=== PATIENT | female | born 1965 | race Caucasian/White ===

== ENCOUNTER → 2021-04-28 | Outpatient (CLI) | payer OTHER ==
[2021-04-28 16:22] LABS: Basophils # (A) 0.04 X 10*3/uL (0.00-0.10); Basophils % (A) 0.4 %; Eosinophils % (A) 0.9 %; HCT 39.6 % (37.2-46.3); HGB 13.1 g/dL (12.0-15.0); Lymphocytes # (A) 3.17 X 10*3/uL (0.90-5.00); MCH 31.3 pg (27.0-32.0); MCHC 33.1 g/dL (32.0-37.0); MCV 94.7 fL (80.0-97.0); Mean Platelet Volume 11.8 fL (9.5-12.2); Monocytes # (A) 0.54 X 10*3/uL (0.20-1.00); Monocytes % (A) 4.9 %; Neutrophils # (A) 7.05 X 10*3/uL (1.80-7.70); Neutrophils % (A) 64.5 %; Platelet Count 254 X 10*3/uL (140-440); RBC 4.18 X 10*6/uL (4.10-5.20); RDW 12.9 % (11.5-14.5); WBC 10.93 X 10*3/uL (4.50-10.00)
[2021-04-28 19:06] LABS: African American GFR (CKD) 58.9 (60.0-200.0); Albumin 4.3 g/dL (3.80-4.90); Albumin/Globulin Ratio 1.72 (1.60-3.17); Anion Gap 8.2 mmol/L (4.00-12.00); BUN/Creat Ratio 18.33 Ratio (12.00-20.00); Calcium 9.4 mg/dL (8.7-10.3); Carbon Dioxide 29.8 mmol/L (21.6-31.8); Globulin 2.5 g/dL (1.6-3.3); Non-African American GFR(CKD) 50.8 (60.0-200.0); Potassium 4.5 mmol/L (3.5-5.5); Total Bilirubin 0.4 mg/dL (0.2-1.2); Total Protein 6.8 g/dL (6.2-8.2)
[2021-04-28 19:14] LABS: T4, Free (Free Thyroxine) 1.2 ng/dL (0.80-1.80)
== END | disposition home or self-care (01) ==
LOC: LABWHC1 10:43
PROVIDERS: ATTEND Physician Assistant
DX: R41.3 Other amnesia (principal)
CPT/HCPCS: 36415; 80053; 82306; 82607; 84439; 84443; 84481; 85025

== ENCOUNTER → 2021-08-07 | Outpatient (CLI) | payer OTHER ==
[2021-08-07 14:36] LABS: HCT 39.1 % (37.2-46.3); HGB 12.5 g/dL (12.0-15.0); MCH 31.3 pg (27.0-32.0); Mean Platelet Volume 11.3 fL (9.5-12.2); Platelet Count 274 X 10*3/uL (140-440); RBC 3.99 X 10*6/uL (4.10-5.20); RDW 13.4 % (11.5-14.5); WBC 7.48 X 10*3/uL (4.50-10.00)
[2021-08-07 15:55] LABS: Basophils # (A) 0.05 X 10*3/uL (0.00-0.10); Basophils % (A) 0.7 %; Eosinophils # (A) 0.23 X 10*3/uL (0.04-0.35); Eosinophils % (A) 3.1 %; Lymphocytes # (A) 2.84 X 10*3/uL (0.90-5.00); Monocytes # (A) 0.63 X 10*3/uL (0.20-1.00); Monocytes % (A) 8.4 %; Neutrophils # (A) 3.71 X 10*3/uL (1.80-7.70); Neutrophils % (A) 49.5 %
[2021-08-07 17:25] LABS: Erythrocyte Sedimentation Rate 24 mm/Hr (0-30)
[2021-08-07 17:26] LABS: LDL Cholesterol,Calculated 179.6 mg/dL (0.0-131.0)
[2021-08-07 17:31] LABS: ALT 22 U/L (8-44); AST 27 U/L (13-35); African American GFR (CKD) 73.5 (60.0-200.0); Albumin 4.1 g/dL (3.8-4.9); Albumin/Globulin Ratio 1.77 (1.60-3.17); Alkaline Phosphatase 71 U/L (41-126); Calcium 9.2 mg/dL (8.7-10.3); Carbon Dioxide 22.3 mmol/L (20.0-27.5); Chloride 106 mmol/L (96-109); Globulin 2.3 g/dL (1.6-3.3); Glucose 96 mg/dL (70-110); Non-African American GFR(CKD) 63.4 (60.0-200.0); Potassium 4.9 mmol/L (3.5-5.5); Sodium 142 mmol/L (135-145); Total Protein 6.4 g/dL (6.2-8.2)
[2021-08-07 18:42] LABS: Gliadin AB IgA, Deaminated NEGATIVE (NEGATIVE); Gliadin AB IgA, Unit 2.4 U/mL; Gliadin AB IgG, Deaminated NEGATIVE (NEGATIVE)
== END | disposition home or self-care (01) ==
LOC: LABWHC1 09:22
PROVIDERS: ATTEND Family Medicine
DX: K63.5 Polyp of colon (principal); K57.32 Diverticulitis of large intestine without perforation or abscess without bleeding; K59.4 Anal spasm; R41.3 Other amnesia
CPT/HCPCS: 36415; 80053; 80061; 82306; 82607; 83516; 84443; 85025; 85652; 86140

== ENCOUNTER → 2021-08-18 | Outpatient (CLI) | payer OTHER ==
--- NOTE | 2021-08-18 15:29 | CT ---
EXAMINATION TYPE: CT abdomen pelvis w con DATE OF EXAM: 08/18/2021 HISTORY: left sided abdominal pain and constipation CT DLP: 1271.1mGycm Automated Exposure Control for Dose Reduction was Utilized. CONTRAST: CT scan of the abdomen and pelvis is performed without oral but with IV Contrast, patient injected wi th 100 mL of Isovue 300. COMPARISON: None. FINDINGS: LUNG BASES: Dependent atelectasis bilateral lower lungs. There is 8 x 5 mm subpleural left basilar no dule axial image 15 LIVER/GB: Contracted gallbladder. PANCREAS: No significant abnormality is seen. SPLEEN: No significant abnormality is seen. ADRENALS: No significant abnormality is seen. KIDNEYS: Symmetric cortical medullary uptake and excretion with tortuous course to the proximal right ureter. Mild right-sided pyelocaliectasis. No obstructing calculus bilaterally BOWEL: Slightly suboptimal evaluation of bowel without enteric contrast. No suspicious small or large bowel dilatation is seen. Normal-appearing appendix from cecum identified. Few scattered colonic div erticula. No CT evidence for acute diverticulitis.. UTERUS/ADNEXA: Uterus surgically absent or markedly atrophic. Single right-sided pelvic phlebolith on axial image 75. LYMPH NODES: No greater than 1cm abdominal or pelvic lymph nodes are appreciated. OSSEOUS STRUCTURES: No significant abnormality is seen. OTHER: Moderate peripheral plaque in the aorta extends into branch vessels. Somewhat small caliber ao rta and iliac branch vessels noted. Some narrowing at celiac artery origin sagittal image 65. Cannot exclude celiac artery compression syndrome in the appropriate setting, correlate clinically. IMPRESSION: Some scattered colonic diverticula, no CT evidence for acute diverticulitis. No bowel obs truction. No acute findings are clearly evident.
== END | disposition home or self-care (01) ==
LOC: RADCTMAIN 12:57
PROVIDERS: ATTEND Family Medicine
DX: K57.30 Diverticulosis of large intestine without perforation or abscess without bleeding (principal)
CPT/HCPCS: 74177; Q9967

== ENCOUNTER → 2022-07-06 | Outpatient (CLI) | payer OTHER ==
[2022-07-06 13:56] VITALS: BP 134/93; PULSE 91; RESP 16; TEMP 98.1
--- NOTE | 2022-07-06 15:38 | P.PAINPG ---
PQRS Measure Charge Sheet Comment: HISTORY OF PRESENT ILLNESS: 57 yr old female as a referral from Dr Jackson presents today w severe and chronic LBP x 2 yrs secondary to DDD, spondylosis and facet arthropathy without myelopathy for evaluation. Pt states pain level is at 4/10 in intensity, constant, localized in the lower lumbar spine, dull in character w shooting pain towards the groin and back of legs. Pain is provoked by walking/ standing/ bending for periods of 45 min or more. Pain is alleviated by medications (Tramadol, Neurontin, Buspar), injections in the past, ice, heat, PT x 4 wks in May 2022, reclining and rest. PMH: OA, HTN, Anxiety PSH: Denies SH: 42 pack/ yr current tobacco user, Rare ETOH use, No illicit drug use FH: Non contributory All: See list Meds: See list REVIEW OF ORGAN SYSTEMS: CONSTITUTIONAL: No fevers or chills. No recent weight loss. NEUROLOGICAL: + numbness and tingling along the distal extremities. No seizure disorders or headaches. MUSCULOSKELETAL: + pain PSYCHIATRIC: Denies current depression or suicidal th oughts. Physical Examinations : Constitutional : Cooperative , not in acute distress . Neurologic : Cranial nerve II to XII intact. No focal neurological deficits. Psychiatric : alert & oriented x 3. Matching mood & appropriate affect. Judgment & insight intact. Musculoskeletal : Cervical Spine Motor strength in the deltoid and biceps: Normal right side. Normal Left side Motor strength biceps and the wrist extensors: Normal right side . Normal left side Motor strength in the triceps muscle: Normal right side. Normal left side Deep tendon reflexes: Normal at the biceps. Normal at Brachioradialis. Normal at triceps Vertebral body tenderness to deep palpation over Cervical facet loading test: positive bilaterally Spurling test: positive bilaterally Neck distraction test: positive bilaterally Darren sign: positive bilaterally Lumbar spine Motor strength lower extremities ,thigh and legs 5/5 Right side , 5/5 Left side Deep tendon reflexes : Normal Knee Jerk. Normal Ankle Jerk Vertebral body tenderness over L4 Lumbar facet Loading Test: positive Right / positive Left Range of motion of the lumbar spine Flexion 30 degrees, extension 10 degrees Straight Leg Raise test: Left/ Right positive at degree Isabelle test: positive right / positive left. Severe tenderness over the Sacroiliac joint on the Right / Left sides Gaenslen test: positive bilaterally Seated flexion test: positive bilaterally. Sacral spine : Severe tenderness over the Sacroiliac joint: right side / left side Range of motion: Flexion of the lumbar spine <60 degrees Range of motion: Extension of the lumbar spine <20 degrees Gaenslen's Test positive Des's Test positive Isabelle test: positive right side / left side Thigh Thrust Test Sacral Thrust Test Imaging: X-ray of the lumbar spine from 05/12/22 reviewed Assessment/ Plan : Lumbar radiculopathy, lumbar DDD Will obtain MRI reports from [facility] as patient states she completed recently. Recommendation of MARNIE L4-L5. May need a series of injections, up to 3 within a 6 mo period, for optimal pain relief. Risks, benefits of procedure discussed and patient verbalized understanding. Admits to aspirin or anti- coagulant use or medical history of diabetes. Protocol for discontinuation/ continuation of medications castillo procedure discussed. All questions answered. I have spent greater than 30 minutes on patient care today. Dr Corrales was available by phone for the evaluation of this patient. The time was used to review the medical records including relevant urine studies and Prescription history (MAPs), review of the available imaging, evaluation and examination of the patient, coordination of care with the medical staff and if applicable r eferring physicians, as well as creation of the medical record Controlled Substance Measures - Controlled Substance Measures Is patient prescribed a controlled substance at discharge?: No
== END ==
LOC: PNWHC3 12:32
PROVIDERS: ATTEND Specialist
DX: M51.36 Other intervertebral disc degeneration, lumbar region (principal); M54.16 Radiculopathy, lumbar region
CPT/HCPCS: 99211

== ENCOUNTER 2022-08-06 11:48 | Day surgery (SDC) | payer OTHER ==
[2022-08-04 09:55] VITALS: BMI 30.5
[~2022-08-06 11:48] MED LIST: LACTATED RINGERS 1,000 ML IV SCH
[2022-08-06 12:14] VITALS: TEMP 98.1
[2022-08-06] MEDS ORDERED: LACTATED RINGERS 1,000 ML IV ONE ×2 (12:15→13:05)
[2022-08-06] MEDS ORDERED: fentaNYL (PF) 50 MCG/ML 2 ML AMP ONE (12:49)
[2022-08-06] MEDS ORDERED: MIDAZOLAM 2 MG/2 ML VIAL ONE (12:49)
[2022-08-06] MEDS ORDERED: methylPREDNISolone ACETATE 80 MG/ML 1 ML VIAL ONE (12:49)
[2022-08-06] MEDS ORDERED: IOPAMIDOL M200 10 ML VIAL ONE (12:49)
--- NOTE | 2022-08-06 13:02 | P.PCN ---
Date of Procedure: 08/06/22 Description of Procedure: Procedure: 1. L4-L5 Epidural steroid injection under fluoroscopic guidance # 1/ , 2. Lumbar epidurogram PREOPERATIVE DIAGNOSIS: Lumbar degenerative disc disease, and Lumbar radiculopathy. POSTOPERATIVE DIAGNOSIS: Lumbar degenerative disc disease, and Lumbar radiculopathy. SURGEON: Humberto Leyva ANESTHESIA: Local with 1% lidocaine, and IV sedation: Versed 2 mg, and fentanyl 50 g Sedation supervision start time: 1253 Sedation supervision ended time 1300 EBL: None. Specimen removed: None Fluoroscopic image: saved to electronic medical records PROCEDURE INDICATION: The patient had history of Lumbar degenerative disc disease and Lumbar radiculopathy. Failed to conservative therapy. Presented for epidural steroid injection. PROCEDURE DESCRIPTION: The patient was seen and identified in the preoperative area. Risks, benefits, complications, and alternatives were discussed with the patient. The patient agreed to proceed with the procedure and signed the consent. IV was started, and vital signs were stable. Patient was taken to the procedure area, and time out was completed. The patient was placed in the prone position on procedure table and a pillow was placed under the abdomen to reduce lumbar lordosis. The lumbosacral area was prepped and draped in the usual sterile fashion. Critical pause was taken. Vital signs were closely monitored during the procedure. Using anterior-posterior fluoroscopy, the L4-L5 interlaminar space was identified, and skin and deeper tissues were localized with 3 ml of 1% lidocaine. Using anterior-posterior fluoroscopy, lateral fluoroscopy, and hexm-wd-aozddhhuli technique, a 20 gauge 3.5 Tuohy epidural needle entered the epidural space. After negative aspiration of CSF and blood with no paresthesias, 2 ml of [id number] contrast dye was injected and an excellent epidurogram was seen. Again after negative aspiration of CSF and blood with no paresthesias, 7 mL of block solution was injected into the epidural space. Block solution contained 80 mg of Depo-Medrol, and 6 mL of preservative-free normal saline. Needle was withdrawn intact, skin was cleansed, and bandages were applied. COMPLICATIONS: None. DISPOSITION / PLANS: The patient was placed in a supine position and transferred to the recovery area in a stable condition for observation. Patient was discharged from the recovery room after meeting discharge criteria. Home discharge instructions given to the patient by the staff. The patient was reexamined prior to discharge. The patient will schedule a follow up in the clinic in 4 weeks.
[2022-08-06 13:06] VITALS: PULSE 77
--- NOTE | 2022-08-06 13:30 | FL ---
EXAMINATION TYPE: FL guided pain mgmt statistic DATE OF EXAM: 08/06/2022 HISTORY: Fluoroscopy time 3 seconds of fluoroscopy provided. IMPRESSION: 1. Fluoroscopy time.
[2022-08-06 13:45] VITALS: BP 121/77; RESP 20
== END 2022-08-06 13:35 | disposition home or self-care (01) ==
LOC: ORPAIN 11:48
DX: M51.16 Intervertebral disc disorders with radiculopathy, lumbar region (principal); I10 Essential (primary) hypertension; F17.210 Nicotine dependence, cigarettes, uncomplicated; F41.8 Other specified anxiety disorders; F43.10 Post-traumatic stress disorder, unspecified; K57.90 Diverticulosis of intestine, part unspecified, without perforation or abscess without bleeding; F12.90 Cannabis use, unspecified, uncomplicated; Z98.890 Other specified postprocedural states; Z90.710 Acquired absence of both cervix and uterus; Z88.0 Allergy status to penicillin; Z88.5 Allergy status to narcotic agent; Z88.8 Allergy status to other drugs, medicaments and biological substances
CPT/HCPCS: 62323; J2250; J1040; J3010; Q9966

== ENCOUNTER 2022-08-12 16:18 | Emergency (ER) | payer OTHER ==
[2022-08-12 16:37] VITALS: TEMP 98.2
--- NOTE | 2022-08-12 16:50 | XR ---
EXAMINATION TYPE: XR KUB DATE OF EXAM: 08/12/2022 4:46 PM INDICATION: Patient age:Female; 57 years old; Reason for study: abdominal pain; COMPARISON: None TECHNIQUE: One radiographic view of the abdomen was obtained. FINDINGS: The bowel gas pattern is nonspecific without dilated loops of small or large bowel. There i s no evidence for organomegaly or pneumoperitoneum. The osseous structures are intact. No abnormal calcifications are present. Fecal material and gas are demonstrated throughout the colon and rectum. IMPRESSION: Nonspecific bowel gas pattern without radiographic evidence for acute process.
[2022-08-12] MEDS ORDERED: SODIUM CHLORIDE 0.9% 1,000 ML IV STA (19:09)
[2022-08-12] MEDS ORDERED: ONDANSETRON 4 MG/2 ML VIAL IVP STA (19:09)
[2022-08-12] MEDS ORDERED: KETOROLAC 15 MG/ML 1 ML VIAL IVP STA (19:10)
[2022-08-12 20:29] LABS: Basophils # (A) 0.1 k/uL (0-0.2); Basophils % (A) 0 %; Eosinophils # (A) 0.2 k/uL (0-0.7); Eosinophils % (A) 2 %; HGB 13.8 gm/dL (11.4-16.0); Lymphocytes # (A) 4.1 k/uL (1.0-4.8); Lymphocytes % (A) 32 %; MCH 30.7 pg (25.0-35.0); MCHC 32.9 g/dL (31.0-37.0); MCV 93.2 fL (80.0-100.0); Mean Platelet Volume 9.6; Monocytes # (A) 0.7 k/uL (0-1.0); Monocytes % (A) 6 %; Neutrophils # (A) 7.4 k/uL (1.3-7.7); Neutrophils % (A) 58 %; Platelet Count 262 k/uL (150-450); RBC 4.51 m/uL (3.80-5.40); RDW 13.2 % (11.5-15.5); WBC 12.7 k/uL (3.8-10.6)
[2022-08-12 20:30] LABS: Appearance,Urine Clear (Clear); Bilirubin,Urine Negative (Negative); Blood,Urine Negative (Negative); Color,Urine Yellow; Glucose,Urine (UA) Negative (Negative); Ketones,Urine Negative (Negative); Leukocyte Esterase,Urine Negative (Negative); Nitrite,Urine Negative (Negative); Protein,Urine Negative (Negative); Specific Gravity,Urine 1.015 (1.001-1.035); Urobilinogen,Urine <2.0 mg/dL (<2.0)
--- NOTE | 2022-08-12 20:41 | CT ---
EXAMINATION TYPE: CT abdomen pelvis w con CT DLP: 1279.8 mGycm, Automated exposure control for dose reduction was used. DATE OF EXAM: 08/12/2022 8:14 PM COMPARISON: 08/18/2021. CLINICAL INDICATION:Female, 57 years old with history of abdominal pain; LOW ABD PAIN TECHNIQUE: Axial CT of the abdomen and pelvis. Sagittal and coronal reformats were created on a [employer] workstation. Contrast used:100ML mL of Isovue 300 with IV Contrast, Oral contrast used: without Oral Contrast FINDINGS: LOWER CHEST: Unremarkable ABDOMEN LIVER: Unremarkable GALLBLADDER AND BILE DUCTS: Phrygian cap of the gallbladder. PANCREAS: Unremarkable. SPLEEN: Unremarkable. ADRENAL GLANDS: Unremarkable. KIDNEYS AND URETERS: No evidence of hydronephrosis or renal calculus. The ureters are unremarkable. PELVIS BLADDER: Unremarkable REPRODUCTIVE: The uterus is surgically absent. ABDOMEN & PELVIS STOMACH AND BOWEL: No evidence of bowel obstruction. Appendix is normal. There is moderate stool seen within the right colon predominantly. PERITONEUM/RETROPERITONEUM: No evidence of pneumoperitoneum or free fluid. . VASCULATURE: No evidence of aortic aneurysm. Atherosclerosis of the arterial vasculature. MUSCULOSKELETAL: No acute osseous abnormalities. Mild disc degeneration changes are present throughou t the thoracolumbar spine. LYMPH NODES: No gross evidence for lymphadenopathy. SOFT TISSUE/ABDOMINAL WALL: Unremarkable IMPRESSION: No evidence for acute abdominal process. Appendix is normal. No obstructive uropathy.
[2022-08-12 20:43] VITALS: RESP 18
[2022-08-12 20:43] LABS: ALT 20 U/L (4-34); AST 29 U/L (14-36); African American GFR (CKD) >90 (>60 ml/min/1.73 sqM); Albumin 4.7 g/dL (3.5-5.0); Alkaline Phosphatase 68 U/L (38-126); Anion Gap 7 mmol/L; Blood Urea Nitrogen 17 mg/dL (7-17); Calcium 9.4 mg/dL (8.4-10.2); Carbon Dioxide 28 mmol/L (22-30); Chloride 104 mmol/L (98-107); Glucose 103 mg/dL (74-99); Non-African American GFR(CKD) 87 (>60 ml/min/1.73 sqM); Sodium 139 mmol/L (137-145); Total Bilirubin 0.8 mg/dL (0.2-1.3); Total Protein 7.9 g/dL (6.3-8.2)
[2022-08-12 20:58] LABS: Potassium 5.3 mmol/L (3.5-5.1)
[2022-08-12 21:11] LABS: Amylase 71 U/L (30-110); Lipase 87 U/L (23-300)
--- NOTE | 2022-08-12 21:31 | ED ---
Abdominal Pain HPI - General Chief Complaint: Abdominal Pain Stated Complaint: Abd pain Time Seen by Provider: 08/12/22 19:01 Source: patient Mode of arrival: ambulatory - History of Present Illness Initial Comments: Patient is a 57-year-old female presenting with chief complaint of abdominal pain. Pain started last night it is sharp in nature. It is located in the bilateral lower quadrants. Patient states she had one episode of seeing a small amount of bright red blood on the toilet tissue, patient has known hemorrhoids and believes this to be the cause. She admits to small amount of nausea, no vomiting. No chest pain or difficulty breathing. No palpitations, weakness, numbness, tingling, headache, fever, chills. - Related Data Home Medications Medication Instructions Recorded Confirmed Cholecalciferol [Vitamin D3 (25 25 mcg PO DAILY 08/04/22 08/06/22 Mcg = 1000 Iu)] DULoxetine HCL [Cymbalta] 120 mg PO DAILY 08/04/22 08/06/22 Gabapentin 300 mg PO TID 08/04/22 08/06/22 Magnesium Oxide [Magnesium] 700 mg PO DAILY 08/04/22 08/06/22 Mirtazapine [Remeron] 1.5 tab PO HS PRN 08/04/22 08/06/22 Omeprazole 40 mg PO DAILY 08/04/22 08/06/22 busPIRone HCL 15 mg PO TID 08/04/22 08/06/22 lisinopriL [Zestril] 20 mg PO DAILY 08/04/22 08/06/22 traMADol HCL 50 mg PO BID 08/06/22 08/06/22 Allergies Allergy/AdvReac Type Severity Reaction Status Date / Time acetaminophen [From [place]] Allergy Severe HIVES, Verified 08/12/22 16:37 COULDNOT BREATH hydrocodone [From [place]] Allergy Severe HIVES, Verified 08/12/22 16:37 COULD'NT BREATHE Penicillins Allergy Unknown Anaphylaxis, Verified 08/12/22 16:37 THROAT CLOSING, RASH, DYSPNEA Review of Systems ROS Statement: Those systems with pertinent positive or pertinent negative responses have been documented in the HPI. ROS Other: All systems not noted in ROS Statement are negative. Past Medical History Past Medical History: Chest Pain / Angina, GERD/Reflux, Hypertension, Memory Impairment History of Any Multi-Drug Resistant Organisms: None Reported Past Surgical History: Hysterectomy, Orthopedic Surgery, Tubal Ligation Additional Past Surgical History / Comment(s): left shoulder surg. x2. benign tumor removed during hysterectomy Past Anesthesia/Blood Transfusion Reactions: No Reported Reaction Past Psychological History: Anxiety, Depression, PTSD Smoking Status: Current every day smoker Past Alcohol Use History: None Reported Past Drug Use History: Marijuana - Past Family History Mother Family Medical History: Deep Vein Thrombosis (DVT) General Exam Limitations: no limitations General appearance: alert, in no apparent distress Head exam: Present: atraumatic, normocephalic, normal inspection Eye exam: Present: normal appearance Neck exam: Present: normal inspection Respiratory exam: Present: normal lung sounds bilaterally. Absent: respiratory distress, wheezes, rales, rhonchi, stridor Cardiovascular Exam: Present: regular rate, normal rhythm, normal heart sounds. Absent: systolic murmur, diastolic murmur, rubs, gallop, clicks GI/Abdominal exam: Present: soft, tenderness (Diffuse). Absent: distended, guarding, rebound, rigid Neurological exam: Present: alert, oriented X3, CN II-XII intact Psychiatric exam: Present: normal affect, normal mood Skin exam: Present: warm, dry, intact, normal color. Absent: rash Course Vital Signs 08/12/22 08/12/22 08/12/22 16:32 20:42 22:05 Temperature 98.2 F Pulse Rate 78 65 68 Respiratory 16 18 18 Rate Blood Pressure 138/85 139/81 145/84 O2 Sat by Pulse 98 95 96 Oximetry Medical Decision Making - Medical Decision Making Was pt. sent in by a medical professional or institution (, PA, TRACE EVIDENCE TECHNICIAN, urgent care, hospital, or group home...) When possible be specific @ -[No] Did you speak to anyone other than the patient for history (EMS, parent, family, police, friend...)? What history was obtained from this source @ -Sister at bedside Did you review nursing and triage notes (agree or disagree)? Why? @ -[I reviewed and agree with nursing and triage notes] Were old charts reviewed (outside hosp., previous admission, EMS record, old EKG, old radiological studies, urgent care reports/EKG's, group home records)? Report findings @ -[No old charts were reviewed] Differential Diagnosis (chest pain, altered mental status, abdominal pain women, abdominal pain men, vaginal bleeding, weakness, fever, dyspnea, syncope, headache, dizziness, GI bleed, back pain, seizure, CVA, palpatations, mental health)? @ -[facility] Differential Abdominal Pain Women: Appendicitis, Cholecystitis, diverticulosis, ischemic bowel, pancreatitis, hepatitis, UTI, gastroenteritis, AAA, incarcerated hernia, bowel obstruction, constipation, inflammatory bowel, hepatitis, peptic ulcer disease, splenic infarction, perforated viscus, vulvitis, ovarian torsion, PID, kidney stone, silvia centa abruption... This is not meant to be an all-inclusive list EKG interpreted by me (3pts min.). @ -[As above] X-rays interpreted by me (1pt min.). @ -Nonacute abdomen CT interpreted by me (1pt min.). @ - No acute intra-abdominal process. There appears to be a large amount of stool buildup correlating constipation U/S interpreted by me (1pt. min.). @ -[None done] What testing was considered but not performed or refused? (CT, X-rays, U/S, labs)? Why? @ -[None] What meds were considered but not given or refused? Why? @ -[None] Did you discuss the management of the patient with other professionals (professionals i.e. , PA, TRACE EVIDENCE TECHNICIAN, lab, RT, psych nurse, social science instructor, press catcher, teacher, corporate officer, skilled nursing case manager)? Give summary @ -[No] Was smoking cessation discussed for >3mins.? @ -[No] Was critical care preformed (if so, how long)? @ -[No] Were there social determinants of health that impacted care today? How? (Homelessness, low income, unemployed, alcoholism, drug addiction, transportation, low edu. Level, literacy, decrease access to med. care, snf, rehab)? @ -[No] Was there de-escalation of care discussed even if they declined (Discuss DNR or withdrawal of care, Hospice)? DNR status @ -[No] What co-morbidities impacted this encounter? (DM, HTN, Smoking, COPD, CAD, Cancer, CVA, ARF, Chemo, Hep., AIDS, mental health diagnosis, sleep apnea, morbid obesity)? @ -[None] Was patient admitted / discharged? Hospital course, mention meds given and route, prescriptions, significant lab abnormalities, going to OR and other pertinent info. @ -Patient is a 57-year-old female presenting with chief complaint of abdominal pain that started yesterday. She admits to nausea with no vomiting. On physical examination there is diffuse tenderness. WBC 12.7. Potassium 5.3, sample was hemolyzed. Urine shows no evidence of infection or bleeding. KUB x- ray shows no acute process. CT of abdomen and pelvis shows constipation. Patient is educated on these findings. Encouraged to use gysm-dsw-aonvlty magnesium citrate to help with constipation. Stable hydrated and be active whenever possible. Discharged home. Follow-up with PCP. Report back to ER with any new or worsening symptoms. Discussed return parameters and answered all questions. Patient conveyed verbal understanding and agreed to the plan. I discussed this case in detail with my attending Dr. Glover Undiagnosed new problem with uncertain prognosis? @ -[No] Drug Therapy requiring intensive monitoring for toxicity (Heparin, Nitro, Insulin, Cardizem)? @ -[No] Were any procedures done? @ -[No] Diagnosis/symptom? @ -Constipation Acute, or Chronic, or Acute on Chronic? @ -Acute Uncomplicated (without systemic symptoms) or Complicated (systemic symptoms)? @ -Uncomplicated Side effects of treatment? @ -[No] Exacerbation, Progression, or Severe Exacerbation? @ -[No] Poses a threat to life or bodily function? How? (Chest pain, USA, NM, pneumonia, PE, COPD, DKA, ARF, appy, cholecystitis, CVA, Diverticulitis, Homicidal, Suicidal, threat to staff... and all critical care pts) @ -[No] - Lab Data Result diagrams: 08/12/22 19:26 08/12/22 19:26 Lab Results 08/12/22 08/12/22 08/12/22 Range/Units 19:26 19:26 19:26 WBC 12.7 H (3.8-10.6) k/uL RBC 4.51 (3.80-5.40) m/uL Hgb 13.8 (11.4-16.0) gm/dL Hct 42.0 (34.0-46.0) % MCV 93.2 (80.0-100.0) fL MCH 30.7 (25.0-35.0) pg MCHC 32.9 (31.0-37.0) g/dL RDW 13.2 (11.5-15.5) % Plt Count 262 (150-450) k/uL MPV 9.6 Neutrophils % 58 % Lymphocytes % 32 % Monocytes % 6 % Eosinophils % 2 % Basophils % 0 % Neutrophils # 7.4 (1.3-7.7) k/uL Lymphocytes # 4.1 (1.0-4.8) k/uL Monocytes # 0.7 (0-1.0) k/uL Eosinophils # 0.2 (0-0.7) k/uL Basophils # 0.1 (0-0.2) k/uL Sodium 139 (137-145) mmol/L Potassium 5.3 H (3.5-5.1) mmol/L Chloride 104 (98-107) mmol/L Carbon Dioxide 28 (22-30) mmol/L Anion Gap 7 mmol/L BUN 17 (7-17) mg/dL Creatinine 0.77 (0.52-1.04) mg/dL Est GFR (CKD-EPI)AfAm >90 (>60 ml/min/1.73 sqM) Est GFR (CKD-EPI)NonAf 87 (>60 ml/min/1.73 sqM) Glucose 103 H (74-99) mg/dL Plasma Lactic Acid [place] (0.7-2.0) mmol/L Calcium 9.4 (8.4-10.2) mg/dL Total Bilirubin 0.8 (0.2-1.3) mg/dL AST 29 (14-36) U/L ALT 20 (4-34) U/L Alkaline Phosphatase 68 (38-126) U/L Total Protein 7.9 (6.3-8.2) g/dL Albumin 4.7 (3.5-5.0) g/dL Amylase (30-110) U/L Lipase (23-300) U/L Urine Color Yellow Urine Appearance Clear (Clear) Urine pH 5.0 (5.0-8.0) Ur Specific [place] 1.015 (1.001-1.035) Urine Protein Negative (Negative) Urine Glucose (UA) Negative (Negative) Urine Ketones Negative (Negative) Urine Blood Negative (Negative) Urine Nitrite Negative (Negative) Urine Bilirubin Negative (Negative) Urine Urobilinogen <2.0 (<2.0) mg/dL Ur Leukocyte Esterase Negative (Negative) 08/12/22 08/12/22 Range/Units 19:26 19:26 WBC (3.8-10.6) k/uL RBC (3.80-5.40) m/uL Hgb (11.4-16.0) gm/dL Hct (34.0-46.0) % MCV (80.0-100.0) fL MCH (25.0-35.0) pg MCHC (31.0-37.0) g/dL RDW (11.5-15.5) % Plt Count (150-450) k/uL MPV Neutrophils % % Lymphocytes % % Monocytes % % Eosinophils % % Basophils % % Neutrophils # (1.3-7.7) k/uL Lymphocytes # (1.0-4.8) k/uL Monocytes # (0-1.0) k/uL Eosinophils # (0-0.7) k/uL Basophils # (0-0.2) k/uL Sodium (137-145) mmol/L Potassium (3.5-5.1) mmol/L Chloride (98-107) mmol/L Carbon Dioxide (22-30) mmol/L Anion Gap mmol/L BUN (7-17) mg/dL Creatinine (0.52-1.04) mg/dL Est GFR (CKD-EPI)AfAm (>60 ml/min/1.73 sqM) Est GFR (CKD-EPI)NonAf (>60 ml/min/1.73 sqM) Glucose (74-99) mg/dL Plasma Lactic Acid [place] 1.5 (0.7-2.0) mmol/L Calcium (8.4-10.2) mg/dL Total Bilirubin (0.2-1.3) mg/dL AST (14-36) U/L ALT (4-34) U/L Alkaline Phosphatase (38-126) U/L Total Protein (6.3-8.2) g/dL Albumin (3.5-5.0) g/dL Amylase 71 (30-110) U/L Lipase 87 (23-300) U/L Urine Color Urine Appearance (Clear) Urine pH (5.0-8.0) Ur Specific [place] (1.001-1.035) Urine Protein (Negative) Urine Glucose (UA) (Negative) Urine Ketones (Negative) Urine Blood (Negative) Urine Nitrite (Negative) Urine Bilirubin (Negative) Urine Urobilinogen (<2.0) mg/dL Ur Leukocyte Esterase (Negative) Disposition Clinical Impression: Constipation Disposition: HOME SELF-CARE Condition: Good Instructions (If sedation given, give patient instructions): Constipation (ED), High Fiber Diet (ED) Additional Instructions: Follow-up with PCP. Report back to ER with any new or worsening symptoms. Take decm-owl-fqsfmee magnesium citrate as needed for constipation. Stay well hydrated. Is patient prescribed a controlled substance at d/c from ED?: No Referrals: None,Stated [Primary Care Provider] - 1-2 days Time of Disposition: 21:31
[2022-08-12 22:07] VITALS: BP 145/84; PULSE 68
== END 2022-08-12 22:08 | disposition home or self-care (01) ==
LOC: EC 16:18
DX: K59.00 Constipation, unspecified (principal); I10 Essential (primary) hypertension; F17.200 Nicotine dependence, unspecified, uncomplicated; F32.A Depression, unspecified; F41.9 Anxiety disorder, unspecified; K21.9 Gastro-esophageal reflux disease without esophagitis; Z88.0 Allergy status to penicillin; Z88.5 Allergy status to narcotic agent; Z88.6 Allergy status to analgesic agent; Z79.899 Other long term (current) drug therapy; Z90.710 Acquired absence of both cervix and uterus; Z98.51 Tubal ligation status
CPT/HCPCS: 36415; 80053; 82150; 83605; 83690; 85025; 81003; 74018; 74177; 99284; 96374; 96375; 96361; J2405; J1885; Q9967

== ENCOUNTER → 2022-10-14 | Outpatient (CLI) | payer OTHER ==
[2022-10-14 14:46] VITALS: BP 111/80; PULSE 101; RESP 18; TEMP 97.6
--- NOTE | 2022-10-14 15:15 | P.PAINPG ---
PQRS Measure Charge Sheet Comment: A 57 yr old female with a history of severe and chronic LBP x 2 yrs secondary to lumbar DDD and spondylosis with facet arthropathy without myelopathy presents today for evaluation s/p BL facet block of the medial branches L4-L5, L5-S1 #1. Pt states she experienced 0 % pain relief s/p procedure. Pain level is provoked at 9/10 in intensity, constant, localized in the lumbar spine, dull/ achy character w shooting towards the L hip and L glutes. Pain is provoked by . Pain is alleviated with use of a lumbar support brace, heat, ice, THC products, repositioning and rest. Interventional pain procedures completed include BL MBB L3-L5 x1, LESI L4-L5 x1 Patient is currently on Tramadol, Flexeril Patient denies any side effects of the medication(s), denies excessive drowsiness or sleepiness, denies suicidal ideation and reports that the current pain medication is helping to control the pain and improve activities of daily living. Patient denies any motor or sensory deficits. Patient denies any fever or night sweats, denies any change in the bowel movements or urination. Physical Examination: -Constitutional: Cooperative. Not in acute distress . - Neurologic: Cranial nerve II to XII intact. No focal neurological deficits. - Psychatric: Alert & oriented x 3. Matching mood & appropriate affect. Ju dgment and insight intact. - Musculoskeletal: Cervical spine: Muscle bulk/ tone/ strength in the bilateral upper extremities normal Vertebral body tenderness to palpation over Spurling test positive Distraction test positive Facet loading test positive TTP Thoracic spine Muscle bulk / tone/ strength in the bilateral paraspinal muscles normal Vertebral body tender to palpation over Facet loading test positive TTP Lumbar spine: Motor bulk/ tone/ strength lower extremities , thigh and legs : 5/5 Deep tendon reflexes : Normal Knee Jerk. Normal Ankle Jerk . Vertebral body tenderness to palpation over Lumbar Facet Loading Test positive TTP over BL L4-L5 L5-S1 facets Straight Leg Raise: positive at 30 degrees right side/ left side Gaenslen's Test positive Sacral spine : Severe tenderness over the Sacroiliac joint: right side / left side Range of motion: Flexion of the lumbar spine <60 degrees Range of motion: Extension of the lumbar spine <20 degrees Gaenslen's Test positive right side / left side Isabelle test: positive right side / left side Thigh Thrust Test positive right side / left side Sacral Thrust Test positive right side / left side Assessment and plan: Chronic LBP secondary to lumbar DDD, spondylosis with facet arthropathy without myelopathy Recommendation of follow up w Dr Jackson, Neurologist. Pt states she was told that her pain may originate from an abdominal nerve that crosses a peripheral nerve. She is disinterested in Lidocaine 5% as her insurance doesn't cover it and states she can not afford the OTC Lidocaine 4% as she only has $10 in her checking account after auto and life ins payments. She is not interested in a SCS implant at this time. All questions answered. I have spent less than 30 minutes on patient care today. Dr Corrales was available by phone for the evaluation of this patient. The time was used to review the medical records including relevant urine studies and Prescription history (MAPs), review of the available imaging, evaluation and examination of the patient, coordination of care with the medical staff and if applicable referring physicians, as well as creation of the medical record - Pain Location Left Hip Non-Pharmacological Interventions: Heat, Ice, Inactivity, Physical Therapy, Position/Reposition Pharmacological Interventions: Block, Epidural, PRN Medication, Topical Medication PQRS Narrative: Hx Alcohol Use (MH) No Home Medications: Ambulatory Orders Cholecalciferol [Vitamin D3 (25 Mcg = 1000 Iu)] 25 mcg PO DAILY 08/04/22 DULoxetine HCL [Cymbalta] 120 mg PO DAILY 08/04/22 Gabapentin 300 mg PO TID 08/04/22 Mirtazapine [Remeron] 1.5 tab PO HS PRN 08/04/22 Omeprazole 40 mg PO DAILY 08/04/22 lisinopriL [Zestril] 20 mg PO DAILY 08/04/22 traMADol HCL 50 mg PO BID 08/06/22 Diclofenac Sodium Gel [Voltaren Gel] 100 gm TOPICAL BID 30 Days #100 gm 09/09/22 busPIRone HCL [Buspar] 30 mg PO TID 09/21/22 Magnesium 400 mg PO DAILY 09/29/22 Meloxicam 7.5 mg PO DAILY 10/02/22 Controlled Substance Measures - Controlled Substance Measures Is patient prescribed a controlled substance at discharge?: No
== END ==
LOC: PNWHC3 14:05
PROVIDERS: ATTEND Specialist
DX: M51.36 Other intervertebral disc degeneration, lumbar region (principal); M47.816 Spondylosis without myelopathy or radiculopathy, lumbar region; G89.29 Other chronic pain; Z88.5 Allergy status to narcotic agent; Z88.0 Allergy status to penicillin; Z91.040 Latex allergy status
CPT/HCPCS: 99211

== ENCOUNTER 2023-01-04 05:51 | Day surgery (SDC) | payer OTHER ==
[~2023-01-04 05:51] MED LIST changes: -LACTATED RINGERS 1,000 ML IV SCH; +Pre Op ABX Message 1 EACH MISC MISCELLANE ONE
[2023-01-04 06:19] VITALS: TEMP 97
[2023-01-04] MEDS ORDERED: LACTATED RINGERS 1,000 ML IV ONE (06:23)
[2023-01-04] MEDS ORDERED: LIDOCAINE 1% (10MG/ML) FOR IV START INTRADERMA ONE (06:23)
[2023-01-04] MEDS ORDERED: DEXAMETHASONE SOD PHOSPHATE 4 MG/ML 1 ML VIAL IVP ONE (06:24)
[2023-01-04] MEDS ORDERED: ONDANSETRON 4 MG/2 ML VIAL IVP ONE ×2 (06:24→06:34)
[2023-01-04] MEDS ORDERED: ONDANSETRON 4 MG/2 ML VIAL ONE (06:26)
[2023-01-04] MEDS ORDERED: DEXAMETHASONE SOD PHOSPHATE 4 MG/ML 1 ML VIAL IV ONE (06:34)
[2023-01-04] MEDS ORDERED: LIDOCAINE 1% (10MG/ML) FOR IV START INTRADERMA PRN (06:34)
[2023-01-04] MEDS ORDERED: LACTATED RINGERS 1,000 ML IV SCH (06:34)
[2023-01-04] MEDS ORDERED: MIDAZOLAM 2 MG/2 ML VIAL IV PRN (06:34)
[2023-01-04] MEDS ORDERED: HYDROmorphone 0.5 MG/0.5 ML SYRINGE IVP PRN ×2 (06:34→07:44)
--- NOTE | 2023-01-04 06:37 | P.HPOR ---
History of Present Illness H&P Date: 12/04/22 Chief Complaint: L SIJ pain .D:Date: 12/04/22 : 10:03am .T:Title: [facility] Follow-up Date of :[birth year] R14 Allergies: Age: 57 year Height: 5'4" Weight: 189 lbs BMI: 32.44 kg/m2 Occupation: Disabled VAS: 7 CHIEF COMPLAINT: Low back pain, L SIJ pain DOI: approx 2 years ago DOS: n/a Duration of current treatment regiment: 2 years HISTORY : Xrays No new X rays taken today Trauma or injury work Work-Related yes Pain description dull, aching, burning, increasing . Location posterior Patient notes that their pain radiates to bilateral lower extremities Activity Modification yes Hand Dominance right TREATMENTS COMPLETED: 6 weeks of PT completed? Month and Year of last PT date? Yes How many sessions? a few, unable to complete due to exacerbation of symptoms. Did it help? No Physician directed home exercise completed? No Medications yes List: Meloxicam, Cyclobenzaprine, Gabapentin, and Tramadol Alternative interventions Chiropractic: No Massage therapy: yes R.I.C.E: yes Brace: Yes, LSO How long was brace worn? *intermittently for 1 year Did it help? yes Injections Yes How many? Multiple, last MARNIE was 2 weeks ago. Did they help? No RFA: No SUBJECTIVE: Ms. Zambrano presents to the office today for an evaluation of their low back pain. 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 They do report that it radiates into the bilateral lower extremities, associated with numbness and tingling. Patient reports increased numbness and tingling into the left anterior thigh is greater than the right lower extremity. Overall the patient has seen a progressive inc rease in symptoms since their onset, which has seen no change since last appointment. Ms. Zambrano symptoms are exacerbated with any increase of activity, due to this they notes that it is increasingly difficult for Ms. Zambrano to complete many of their daily tasks. patient has been wearing brace daily. Patient is having moderate sleep disturbances as well due to their ongoing pain and associated symptoms. Patient is currently receiving care and treatment from a Neurosurgeon, Dr. Mynor Soliman MD., Neurology, [facility], and [facility]. Patient reports that [facility] had told her that they have discharged her due to no longer being able to assist her. For their symptoms, the patient has been taking CBD, Flexeril, Gabapentin, Ketorolac, lidocaine, and Tramadol. Otherwise the patient denies any f/c/sob/cp, no bladder or bowel retention/incontinence, no perineal numbness/tingling, and ambulates independently. HPI: Ms. Zambrano presents to the office today for an evaluation of their low back pain. 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 They do report that it radiates into the bilateral lower extremities, associated with numbness and tingling. Patient reports increased numbness and tingling into the left anterior thigh is greater than the right lower extremity. Overall the patient has seen a progressive increase in symptoms since their onset. Ms. Zambrano symptoms are exacerbated with any increase of activity, due to this they notes that it is increasingly difficult for Ms. Zambrano to complete many of their daily tasks. Patient is having moderate sleep disturbances as well due to their ongoing pain and associated symptoms. Regarding treatments, the patient has previously trialed the above listed modalities. Patient denies trialing any other modalities at this time. Patient is currently receiving care and treatment from a Neurosurgeon, Dr. Mynor Soliman MD., Neurology, [facility], and [facility]. Patient reports that [facility] had told her that they have discharged her due to no longer being able to assist her. For their symptoms, the patient has been taking Meloxicam, Cyclobenzaprine, Gabapentin, and Tramadol. Patient reports that she does have an trademark attorney to proceed with a workers compensation case. Otherwise the patient denies any f/c/sob/cp, no bladder or bowel retention/incontinence, no perineal numbness/tingling, and ambulates independently. Patient's sister Marisol is present in exam room. Marisol informs that pateint does have a learning disability. Patient recently moved back to the area approx 6 months ago. The patients' past social, medical, family, surgical history, as well as review of systems, have been reviewed. Please refer to the Neurosurgery History and Physical form that has been scanned in to our electronic medical record system. 14 points review of systems completed and as stated in HPI, all other systems reviewed are negative. Social History: Reviewed, see appropriate section of the chart for details. P3 Family History: Reviewed, see appropriate section of the chart for details. P2 Past Medical History: Reviewed, see appropriate section of the chart for details. P1 Current Medications: Rx: atorvastatin Ref: 0 Rx: busPIRone 10 mg tablet Ref: 0 Instructions: take 1 tablet (10 mg) by oral route 2 times per day Rx: CBD , Ref: 0 Rx: cyclobenzaprine Ref: 0 Rx: DULoxetine Ref: 0 Rx: gabapentin Ref: 0 Rx: gabapentin 600 mg tablet Ref: 0 Instructions: take 1 tablet (600 mg) by oral route 3 times per day Rx: ketorolac 10 mg tablet Ref: 0 Instructions: take 1 tablet (10 mg) by oral route every 6 hours as needed for up to5 days total use Rx: lidocaine 5 % topical patch Ref: 0 Instructions: apply 1 patch by topical route once daily (May wear up to 12hours.) Rx: lisinopriL 10 mg tablet Ref: 0 Instructions: take 1 tablet (10 mg) by oral route once daily Rx: magnesium Ref: 0 Rx: mirtazapine 15 mg tablet Ref: 0 Instructions: take 1 tablet (15 mg) by oral route once daily before bedtime Rx: omeprazole 40 mg capsule,delayed release Ref: 0 Instructions: take 1 capsule (40 mg) by oral route once daily before a meal Rx: prazosin 1 mg capsule Ref: 0 Instructions: take 1 capsule (1 mg) by oral route 3 times per day Rx: propranoloL 10 mg tablet Ref: 0 Instructions: take 2 tablets (20 mg) by oral route 3 times per day Rx: traMADol 50 mg tablet Ref: 0 Instructions: take 1 tablet (50 mg) by oral route every 6 hours as needed Rx: Vitamin Ref: 0 Instructions: d3 P1 PHYSICAL EXAMINATION: General: Awake, alert, appropriate for age, in no acute distress. HEENT: No unusual neck masses around region of lateral neck triangle, thyroid, supraclavicular groove Heart: Regular rate and rhythm, normal S1, S2 and no murmur/gallop. Lungs: Clear to auscultation bilaterally with no use of accessory muscles. Extremities: Skin warm and dry without acute lesions, coloration, temperature, skin intact, no tenderness or erythema Integument: Hairy patches: ABSENT Dorsal skin dimples: ABSENT Cafe au lait spots: ABSENT Surgical incisions: n/a Palpation: Please see Pain drawing on Intake sheet for further detail. Midline spinal tenderness: No E6 Cervical Tenderness: No E6 Paralumbar tenderness:Yes E6 Parathoracic tenderness: No E6 Buttocks tenderness: No E6 Sacroilliac Tenderness: YES LEFT SIJ TESTING: +compression LT +Hip thrust LT +FABER4 Lt -Distraction +Thigh Thrust LT +Jevon LT POSTURAL and MUSCULO-SKELETAL EVALUATION: Coronal Balance: NEUTRAL Recumbent testing: Patient is able to lay flat on back Sagittal Balance: NEUTRAL Shoulder Profile: LEVEL Pelvic Girdle: LEVEL Neck ROM: UNRESTRICTED Lumbar ROM: RESTRICTED Shoulder ROM: Symmetrical Hip ROM: Symmetrical Knee ROM: Symmetrical Hands: Normal appearance, symmetrical Feet: Normal appearance, Symmetrical VASCULAR STATUS : LEFT RIGHT Wrist Pulses INTACT INTACT Pedal Pulses (Dors. pedis & post.tibialis) INTACT INTACT Color NORMAL NORMAL Edema Absent Absent NEUROLOGIC EXAMINATION: Mental Status:Awake and alert, fully oriented, with normal attention, concentration and memory, and fluent, appropriate speech. Cranial Nerves: I: Olfactory not tested. II: Visual acuity normal, no visual field deficit noted with confrontation. III,IV: Normal pupillary reflexes & intact extraocular movements without nystagmus. V,: Intact symmetrical facial sensation. VII: Intact symmetrical facial motor movement VIII: Hearing intact. IX,X: Intact gag, swallow, & normal voice. XI: Sternocleidomastoid, trapezius function intact. XII: Tongue midline with normal movements. L'hermitte's Sign: Negative / absent Spurling'Sign: Absent bilaterally. Cubital percussion test: Absent bilaterally. Llanos-Tinel sign - Carpal region: Absent bilaterally. Straight Leg Raising: Positive on left Crossed straight leg raise: negative O8 MOTOR EXAM (0-5/5, N/T Muscle appearance: Symmetrical, without signs of atrophy or dystrophy UPPER EXTREMITY RIGHT LEFT Shoulder Abduction 5/5 5/5 Biceps 5/5 5/5 Triceps 5/5 5/5 Wrist Extension 5/5 5/5 Hand Intrnsics 5/5 5/5 In Store Demonstrator 5/5 5/5 LOWER EXTREMITY RIGHT LEFT Hip Flexion 5/5 4/5 Knee Extension 5/5 4/5 Knee Flexion 5/5 4/5 Dorsiflexion 5/5 4-/5 Plantarflexion 5/5 3+/5 EHL 5/5 4-/5 FHL 5/5 4-/5 Toe heel walk / heel-toe walk intact while maintaining satisfactory balance? No Single leg stance: intact Trendelenburg sign negative bilaterally REFLEXES(0-4/2, NT)Upper ExtremityLower Extremity Right 2 2 Left 2 2 Pathological Reflexes RIGHT LEFT Llanos's Absent Absent Clonus Absent Absent Babinski Absent Absent Sensory system (0-4, N/T) Test type RU RONY RL LL Joint-Position 2 2 2 2 Vibration 2 2 2 2 Pain & LT sense 2 2 2 2 Dermatomal Deficit: None None None L4-5 Gait and Functional Evaluation: Ambulatory aids: Independent Romberg's test: Intact bilaterally Steady Gait RADIOGRAPHIC STUDIES: XRay Lumbar Multiview (AP, Lateral, Flexion, Extension) with AP pelvis; 5 views taken at [facility] on 10/23/22: Mild multilevel spondylitic changes with preserved alignment. Vertebral body heights are preserved. Disc heights are preserved. No acute osseous abnormalities. MRI scancompleted at Outside facility from 05/22/22 [facility]: Impression: 1. L4-L5: Posterior annular tear is seen within the intervertebral disc. 23 millimeter broad-based disc herniation effaces the ventral surface of the thecal sac resulting in moderate bilateral neural foraminal encroachment and bilateral exiting L4 nerve impingement in conjunction with facet arthrosis. 2. L5-S1: 12 millimeter annular bulge effaces the ventral surface of the thecal sac without evidence of central canal or limiting foraminal stenosis. IMPRESSION: It was my pleasure to have seen and examined Karen. I reviewed the patient's clinical syndrome, physical findings, and imaging studies during the appointment today. It is my impression that the patient has a diagnosis of. 1. Left Sacroiliitis , degenerative 2. Low back pain 3. L4 Annular tear I outlined the natural course history without intervention and various interventional options. PLAN All options were reviewed today, we decided the best course of action would be: - Prescriptions for Celebrex and Medrol dosepak ordered today -Advised patient to continue with supplements, health maintenance, and home exercise programs. Patient expressed understanding and will continue with these modalities. - I discussed treatment options with the patient, including operative and non-op erative options, and they have elected to proceed with the following surgical procedure: Left SI joint injections The indications, risks, benefits, and alternatives to surgery were discussed with the patient and sister at length. Specifically (but not limited to) the risks of infection, stiffness, recurrence of symptoms, need for revision surgery, local numbness, neurovascular injury, and blood clots were discussed. The patient's questions were answered. The decision to proceed was made. Consent will be obtained for the procedure. -Wear brace as needed/when up and about, do not sleep or shower in it. -Ambulate daily -Take pain medications and post op medications as needed and as directed -Ice and rest for pain and swelling control. Spine Surgery Risk Review Ms. Zambrano is presenting for evaluation of low back pain. It was my pleasure to have seen and examined Ms. Zambrano. In our visit today we have had a chance to go over subjective complaints, physical examination findings and treatments including the natural course history without intervention and various interventional options. The patients imaging demonstrates: XRay Lumbar Multiview (AP, Lateral, Flexion, Extension) with AP pelvis; 5 views taken at [facility] on 10/23/22: Mild multilevel spondylitic changes with preserved alignment. Vertebral body heights are preserved. Disc heights are preserved. No acute osseous abnormalities. MRI scancompleted at Outside facility from 05/22/22 of [facility]: Impression: 1. L4-L5: Posterior annular tear is seen within the intervertebral disc. 23 millimeter broad-based disc herniation effaces the ventral surface of the thecal sac resulting in moderate bilateral neural foraminal encroachment and bilateral exiting L4 nerve impingement in conjunction with facet arthrosis. 2. L5-S1: 12 millimeter annular bulge effaces the ventral surface of the the alessandra sac without evidence of central canal or limiting foraminal stenosis. On physical exam, Ms. 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 They do report that it radiates into the bilateral lower extremities, associated with numbness and tingling. Patient reports increased numbness and tingling into the left anterior thigh is greater than the right lower extremity. I have explained to the patient that as their condition progresses it will cause further neurological deficits and eventual paralysis. Based on the patients imaging, physical exam, and the rapid progression and disabling nature of their symptoms, at this time I recommend surgery in the form of a: Left SI joint injection I discussed the risk and benefits of this procedure at length with Ms. Zambrano. The patient and sister agreed to considered pursuing the procedure abovementioned. Prior to surgery, she should follow up with her PCP (Cardio, ID, IM etc) for clearance. Questions were invited and answered, and the patient wishes to proceed as outlined below. Currently, I am recommendin.Left SI joint injection 2.Follow up with PCP for surgical clearance 3.Review of surgical risks and benefits as well as an educational packet on the proposed surgical procedure. Risks: All surgical procedures come with inherent risks, including those related to positioning, anesthesia, intraoperative findings, and postoperative complications. It is important to understand that surgery does not come with any guarantee of a successful outcome as complications and adverse events are always possible. The patient was given a handout in office today discussing the surgical procedure and risks associated with the intervention, both of which were discussed with the patient. These risks include but are not limited to the following: * Experiencing same, different or even worse symptoms in back, neck, arms, or legs compared to before surgery. Requiring further surgery or other forms of treatment presently or at some time in the future at same or other levels of the intended spine surgery. On an extreme but fortunately relatively rare basis severe complication such as blindness, stroke, heart attack, temporary and/or permanent nerve injury, paralysis, coma, or may occur, sometimes without known explanation. Surgical complications may include but are not limited to risk of infection, fluid accumulation in the surgical dissection site, including a seroma or hematoma, that requires additional surgery, wound drainage, bleeding, new numbness or weakness, vision changes/loss, spinal fluid leakage, non-healing and/or infected incision, headaches, difficulty or inability to swallow, hoarseness, hemopneumothorax, pneumothorax, impotence, retrograde ejaculation, vaginal dryness; injury to nerves, spinal cord, blood vessels, lymphatics or other vital organs (i.e., bowel injury, injury to the great vessels); heterotopic bone formation; complications related to the hardware such as screws, rods, cages including misplaced hardware, device failure, instrumentation at the wrong spine level, hardware fracture/breakage, or hardware loosening; vertebral failure of the spinal column above or below the newly placed hardware; retained surgical instrumentations or devices and the need for further surgery. * Medical risks of the planned spine surgery include but are not limited to generalized Infections to the whole body or local areas outside of the surgical site (sepsis), heart attack, bleeding, anaphylaxis, meningitis, seizure, epilepsy, hearing loss, burn banda, laceration of the head or other areas of the body, bruising, hypersensitivity of the skin, bladder over distension; allergic reaction; shoulder injury related to positioning; fat, blood and air clots to other areas of the body like heart, lungs, brain; failure of internal organs such as lungs, kidneys, liver and excessive bleeding. If blood transfusions are necessary, note that transfusions may cause intolerance reactions such as anaphylaxis or other complex reactions. Despite best efforts, the results of spine surgery might not heal in terms of bone, soft tissues such as skin, fascia, ligaments, and joints. Additionally, in order to achieve best possible results, spine surgery may be carried out beyond the initially planned levels and involve decompression, fusion including insertion of hardware at levels other than the original intended area of surgical interest change some portions of the procedure in order to ensure the best possible outcomes. With spine surgery and spinal fusion, there are different off label uses of instrumentation (devices, implants and hardware) as well as biological substances (bone morphogenic proteins, demineralized bone matrix) as well as using extra bone from allograft sources (i.e. cadaver bone) or autograft (iliac crest bone, ribs, or the spine itself). The patient has been given information about these practices and their inherent risks and benefits. [facility] is an educational center that serves as a training facility for neurosurgical and orthopedic [employer] and Nursing students. Physician assistants are medically trained surgical providers who function in the outpatient, inpatient, and operating room setting under the direct supervision of the attending surgeon. [facility] has multiple operating rooms with single and overlapping rooms running daily. They currently function under the required guidelines as produced by the [facility] with regards to the overlapping rooms and will continue to comply with changes to this policy as they occur. The requirements include and are complied with as follows: (1) the critical portions of the overlapping rooms will not occur at the same time, (2) the attending physician will be physically present during the critical portions of the procedure and immediately available during the entire case, and (3) a back-up attending is designated should the primary attending not be immediately available. The patient has had a chance to review all the listed information, has been given print outs detailing this information, and has had all his/her questions answered to their satisfaction. It was my pleasure to have seen and examined Ms. Zambrano. In our visit today we have had a chance to go over my understanding of our patient's current condition, the natural course history without intervention and various interventional options. Questions were invited and answered, and the patient wishes to proceed as outlined above. I have seen and examined the patient for 25 minutes and we have spent more than 50% of the time in repeat and detailed counseling about the patient's condition, its natural course history with out and as much as can be predicted with surgery and re-review of various surgical treatment options. In conclusion, Ms. Zambrano and her sister requested we proceed with the above suggested surgery and are willing to accept risks and limitations of the suggested surgery as nature of the disease process and our best attempts at treatment for the condition. Thank you again for allowing us to be part of your patient's care. Please don't hesitate to contact me if you have any further questions. FOLLOW-UP Post procedure Pt Education (Informational booklet, instructions, etc) given at today's appointment: Yes .ED:Patient Education: Y Medications Reviewed: YES Attestation: In our visit today Ms. Zambrano and I have had a chance to go over my understanding of the patient's current condition, the natural course history without intervention and various interventional options. Questions were invited and answered, and the patient wishes to proceed as outlined above. I will be sure to keep you updated afterMsSuzanne Zambrano returns here for further follow-up. Thank you again for your referral. Please do not hesitate to contact me if you have any further questions. Signed and authenticated by: Mikey Russo [facility] [address] [place] [address] This message is confidential, intended only for the named recipient(s) and may contain information that is privileged or exempt from disclosure under applicable law. If you are not the intended recipient(s), you are notified that the dissemination, distribution or copying of this information is strictly prohibited. If you received this message in error, please notify the sender then delete this message. CC: Pauly Camara M.D. # SIGNED BY Mikey Staley ([facility])01/04/2023 06:36AM Past Medical History Past Medical History: Chest Pain / Angina, GERD/Reflux, Hyperlipidemia, Hypertension, Memory Impairment, Musculoskeletal Disorder, Osteoarthritis (OA) Additional Past Medical History / Comment(s): past hx. chest pain, lower back pain History of Any Multi-Drug Resistant Organisms: None Reported Past Surgical History: Hysterectomy, Orthopedic Surgery, Tubal Ligation Additional Past Surgical History / Comment(s): left shoulder surg. x2, EGD, colonoscopy,. benign tumor removed during hysterectomy Past Anesthesia/Blood Transfusion Reactions: No Reported Reaction Smoking Status: Current every day smoker - Past Family History Mother Family Medical History: Deep Vein Thrombosis (DVT) Medications and Allergies Home Medications Medication Instructions Recorded Confirmed Type DULoxetine HCL [Cymbalta] 60 mg PO BID 08/04/22 01/04/23 History Gabapentin 600 mg PO TID 08/04/22 01/04/23 History Mirtazapine [Remeron] 1.5 tab PO HS PRN 08/04/22 01/04/23 History Omeprazole 40 mg PO DAILY 08/04/22 01/04/23 History lisinopriL [Zestril] 20 mg PO DAILY 08/04/22 01/04/23 History busPIRone HCL [Buspar] 30 mg PO BID 09/21/22 01/04/23 History Atorvastatin [Lipitor] 20 mg PO DAILY 12/31/22 01/04/23 History Celecoxib [CeleBREX] 200 mg PO DAILY 12/31/22 01/04/23 History Allergies Allergy/AdvReac Type Severity Reaction Status Date / Time hydrocodone [From [place]] Allergy Severe HIVES, Verified 01/04/23 06:20 COULD'NT BREATHE Penicillins Allergy Unknown Anaphylaxis, Verified 01/04/23 06:20 THROAT CLOSING, RASH, DYSPNEA latex Allergy Rash/Hives Verified 01/04/23 06:20 Physical Examination Osteopathic Statement: *. No significant issues noted on an osteopathic structural exam other than those noted in the History and Physical/Consult.
[2023-01-04] MEDS ORDERED: LIDOCAINE 2% INJ 20 MG/ML (2 ML VIAL) ONE (06:56)
[2023-01-04] MEDS ORDERED: KETAMINE 10 MG/ML 20 ML VIAL ONE (06:56)
[2023-01-04] MEDS ORDERED: PROPOFOL 10 MG/ML 20 ML VIAL IV ONE (06:56)
[2023-01-04] MEDS ORDERED: MIDAZOLAM 2 MG/2 ML VIAL ONE (06:56)
[2023-01-04] MEDS ORDERED: fentaNYL (PF) 50 MCG/ML 2 ML AMP ONE (06:56)
[2023-01-04] MEDS ORDERED: BUPIVACAINE (PF) 0.25% 30 ML VIAL SQ ONE (07:08)
[2023-01-04] MEDS ORDERED: LIDOCAINE 0.5%-EPI 1:200,000 50 ML VIAL SQ ONE (07:08)
[2023-01-04] MEDS ORDERED: methylPREDNISolone ACETATE 40 MG/ML 1 ML VIAL INTRAARTIC ONE (07:15)
[2023-01-04 07:31] VITALS: BP 100/65
--- NOTE | 2023-01-04 07:41 | FL ---
Intraoperative/procedural fluoroscopic services were provided for SI joint injection. Total fluorosco py time is 4.9 seconds with a total of 2 submitted images to PACS. Total DAP 0.4622 Gycm2. Please se e the operative note for further details.
[2023-01-04] MEDS ORDERED: CYCLOBENZAPRINE 5 MG TAB PO PRN (07:44)
[2023-01-04] MEDS ORDERED: HYDROcodone/APAP 10-325MG 1 EACH TAB PO PRN (07:44)
[2023-01-04] MEDS ORDERED: SENNOSIDES-DOCUSATE SODIUM 1 EACH TAB PO PRN (07:44)
[2023-01-04] MEDS ORDERED: MAGNESIUM HYDROXIDE 2,400 MG/10 ML CUP PO PRN (07:44)
[2023-01-04 08:12] VITALS: PULSE 71; RESP 16
[2023-01-04] MEDS ORDERED: GABAPENTIN 300 MG CAP PO SCH (09:00)
[2023-01-04] MEDS ORDERED: ACETAMINOPHEN TAB 325 MG TAB PO SCH (12:00)
--- NOTE | 2023-01-05 18:09 | P.OP ---
Date of Procedure: 01/04/23 Preoperative Diagnosis: 1. LEFT SIJ OA Postoperative Diagnosis: 1. LEFT SIJ OA Procedure(s) Performed: 1. Left SIJ injection under flouroscopic guidance with needle localization under flouroscopic guidance of left SIJ. Implants: None Anesthesia: local, other (sedation) Surgeon: Mikey Staley Estimated Blood Loss (ml): 2 IV fluids (ml): 150 Urine output (ml): 0 Pathology: none sent Condition: stable Disposition: PACU Indications for Procedure: Ms. Zambrano is presenting for evaluation of low back pain. It was my pleasure to have seen and examined Ms. Zambrano. In our visit today we have had a chance to go over subjective complaints, physical examination findings and treatments including the natural course history without intervention and various interventional options. The patients imaging demonstrates: XRay Lumbar Multiview (AP, Lateral, Flexion, Extension) with AP pelvis; 5 views taken at [facility] on 10/23/22: Mild multilevel spondylitic changes with preserved alignment. Vertebral body heights are preserved. Disc heights are preserved. No acute osseous abnormalities. MRI scancompleted at Outside facility from 05/22/22 of [facility]: Impression: 1. L4-L5: Posterior annular tear is seen within the intervertebral disc. 23 millimeter broad-based disc herniation effaces the ventral surface of the thecal sac resulting in moderate bilateral neural foraminal encroachment and bilateral exiting L4 nerve impingement in conjunction with facet arthrosis. 2. L5-S1: 12 millimeter annular bulge effaces the ventral surface of the thecal sac without evidence of central canal or limiting foraminal stenosis. On physical exam, Ms. 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 They do report that it radiates into the bilateral lower extremities, associated with numbness and tingling. Patient reports increased numbness and tingling into the left anterior thigh is greater than the right lower extremity. I have explained to the patient that as their condition progresses it will cause further neurological deficits and eventual paralysis. Based on the patients imaging, physical exam, and the rapid progression and disabling nature of their symptoms, at this time I recommend surgery in the form of a: Left SI joint injection I discussed the risk and benefits of this procedure at length with Ms. Zambrano. The patient and sister agreed to considered pursuing the procedure abovementioned. Prior to surgery, she should follow up with her PCP (Cardio, ID, IM etc) for clearance. Questions were invited and answered, and the patient wishes to proceed as outlined below. Currently, I am recommendin.Left SI joint injection Description of Procedure: LEFT SIJ injection The patient was seen and examined in the preoperative area. All preoperative protocols were followed. Informed consent was obtained risks and benefits of the procedure were discussed at length. Risks including bleeding infection damage to the surrounding tissue and risk of reoperation were discussed with the patient. Risk of anesthesia up to and including was a discussed with the patient. These are outlined in the risk review. They were willing to accept these risks and all of the risks of surgery. The patient was seen and evaluated by the anesthesia team who deemed them fit for surgery. The site was marked, the patient was willing to proceed with the procedure. The patient was transferred to the operative suite by the Department of anesthesia. They were then drifted off to sleep by the department anesthesia and sedation with local was performed. The patient tolerated this well. Once confirmation of lines and ventilation the patient was transferred to a prone Mohinder table very carefully. All bony prominences including wrists, elbows, axilla, chest, hips, and thighs, and feet were padded very well. Special attention was paid to the genitalia and these were padded accordingly. SCDs were placed on bilateral lower extremities and were connected. Arms were well padded and placed on arm boards up and out in the 90/90 position. Once in position, again we confirmed good ventilation capabilities and that lines were running appropriately. The patient's lumbopelvic spine was then exposed. 1010s were placed outlining the incision site. Standard alcohol was used to clean the incision site and allowed to dry. C-arm was used to biomark the patient and confirm level for incision which was marked with a skin marker. Operative briefing was performed with all teams and everyone in agreement to proceed. The patient was then prepped and draped in a normal sterile fashion. Timeout was then performed and all parties were in agreement with the procedure to be performed. Biplanar fluoroscopy was used to identify the Left SI joints which were then accessed with a 18-gauge needle after anesthetic was placed into the subcutaneous tissue in the form of 1% with epinephrine of lidocaine along with a mixture of cortical percent Marcaine without epinephrine. Once there is good anesthesia and the SI joint were accessed Isovue was used to confirm within the joint space. Once this was confirmed 40 of Kenalog along with a mixture of lidocaine and Marcaine were injected into the SI joint. Patient remained stable the entire time without any radicular symptoms during the injection phase. The needles were withdrawn and the area cleaned and Band-Aids placed. The patient was transferred back to their hospital bed atraumatically. Patient was then awakened and extubated by the department of anesthesia having tolerated the procedure very well with no complications. They were transferred to the postoperative care unit in stable condition.
== END 2023-01-04 08:28 | disposition home or self-care (01) ==
LOC: OR 05:51
PROVIDERS: ATTEND Orthopaedic Surgery
DX: M47.818 Spondylosis without myelopathy or radiculopathy, sacral and sacrococcygeal region (principal); K21.9 Gastro-esophageal reflux disease without esophagitis; I10 Essential (primary) hypertension; E78.5 Hyperlipidemia, unspecified; F17.200 Nicotine dependence, unspecified, uncomplicated; Z90.710 Acquired absence of both cervix and uterus; Z98.51 Tubal ligation status; Z79.1 Long term (current) use of non-steroidal anti-inflammatories (NSAID); Z88.5 Allergy status to narcotic agent; Z79.899 Other long term (current) drug therapy
CPT/HCPCS: 27096; J2250; J1030; J1100; J2405; J3010; J2704; J2001

== ENCOUNTER → 2023-03-05 | Outpatient (CLI) | payer OTHER ==
[2023-03-05 16:09] LABS: Basophils # (A) 0.03 X 10*3/uL (0.00-0.10); Basophils % (A) 0.4 %; Eosinophils # (A) 0.17 X 10*3/uL (0.04-0.35); Eosinophils % (A) 2.1 %; HGB 12.4 d/dL (12.0-15.0); Lymphocytes # (A) 2.63 X 10*3/uL (0.90-5.00); MCH 31.2 pg (27.0-32.0); MCHC 32.6 d/dL (32.0-37.0); MCV 95.7 FL (80.0-97.0); Mean Platelet Volume 12.3 FL (9.5-12.2); Monocytes # (A) 0.57 X 10*3/uL (0.20-1.00); Monocytes % (A) 6.9 %; NRBC Per 100 WBC 0 X 10*3/uL (0.00-0.01); Neutrophils # (A) 4.81 X 10*3/uL (1.80-7.70); Neutrophils % (A) 58.5 %; Platelet Count 251 X 10*3/uL (140-440); RBC 3.97 X 10*6/uL (4.10-5.20); RDW 13.6 % (11.5-14.5); WBC 8.22 X 10*3/uL (4.50-10.00)
[2023-03-05 17:03] LABS: INR <0.93 sec (0.93-1.11); Prothrombin Time 9.6 sec (9.9-11.9)
[2023-03-05 17:14] LABS: Blood Urea Nitrogen 12.5 mg/dL (9.0-27.0); Calcium 9.6 mg/dL (8.7-10.3); Carbon Dioxide 22.5 mmol/L (21.6-31.8); Chloride 105 mmol/L (96-109); Glucose 98 mg/dL (70-110); Potassium 4.8 mmol/L (3.5-5.5); Sodium 140 mmol/L (135-145)
== END | disposition home or self-care (01) ==
LOC: LABPAT 10:09
PROVIDERS: ATTEND Orthopaedic Surgery
DX: Z01.812 Encounter for preprocedural laboratory examination (principal); Z22.322 Carrier or suspected carrier of Methicillin resistant Staphylococcus aureus; M19.90 Unspecified osteoarthritis, unspecified site; R94.31 Abnormal electrocardiogram [ECG] [EKG]
CPT/HCPCS: 80048; 85025; 85610; 87070; 93005

== ENCOUNTER 2023-03-15 06:05 | Day surgery (SDC) | payer OTHER ==
[2023-03-08 12:06] VITALS: BMI 30.4
--- NOTE | 2023-03-15 06:19 | P.HPOR ---
History of Present Illness H&P Date: 03/05/23 .D:Date: 03/05/23 : 12:43pm .T:Title: [facility] Date of :[birth year] R14 Allergies: Age: 58 year Height: 5'4" Weight: 189 lbs BP:/ BMI: 32.44 kg/m2 Occupation: Unemployed VAS: 7 CHIEF COMPLAINT: left SI joint pain DOI: approximately 2 years ago DOS: n/a Duration of current treatment regiment:> 2 years HISTORY: Xrays No new X rays taken today Trauma or injury Work Work-Related Yes Pain description Dull, aching, burning, increasing . Location Posterior Patient notes that their pain radiates to the left lower extremity. Activity Modification Yes Hand Dominance Right TREATMENTS COMPLETED: 6 weeks of PT completed? Month and Year of last PT date? Yes How many sessions?2-3, unable to complete due to exacerbation of symptoms. Did it help?No Physician directed home exercise completed? No Medications Yes; List: Flexeril, Celebrex, Gabapentin, CBD & Lidocaine patches Alternative interventions Chiropractic:No Massage therapy:Yes R.I.C.E:Yes Brace:Yes, LSO How long was brace worn? *intermittently for 1 year Did it help? yes Injections Yes How many? Multiple, last MARNIE was 1.5 months ago with no relief. Patient received x2 left SI joint injection: relief for 1 day RFA:No SUBJECTIVE: Ms. Zambrano returns to the office today for a pre-operative appointment for her left SI joint fusion. Patient states since her last visit her pain across her back and down her legs is getting worse. Patient notes continued pain throughout the low back that radiates down into the buttocks and groin. The patient also continues to experience radiating pain down into the left lower extremity, associated with numbness and tingling. The patient reports that she gets left leg shaking intermittently. Patient is currently wearing her LSO brace which provides some but minimal relief. The patient has trialed conservative measures in the form of physical therapy, massage therapy, at home heat/ice therapies, activity modification, previous lumbar epidural steroid injections, and left SI joint injections. The patient denies experiencing any sustained relief from conservative treatment measures. The patient is currently taking Flexeril, Celebrex, Gabapentin, CBD and using Lidocaine patches all without sustained relief. The patient states that her symptoms make it very difficult for her to complete many of her activities of daily living. The patient is having severe sleep disturbances due to her ongoing symptoms. The patient states that her symptoms have started to significantly affect her overall quality of life. Otherwise the patient denies any f/c/sob/cp, no bladder or bowel retention/incontinence, no perineal numbness/tingling, and ambulates independently. HPI: Ms. Zambrano returns to the office on 01/21/23 for a re-check on her low back pain after undergoing a left SI joint injection. The patient reports experiencing approximately 65% relief for 1 day following the injection. The patient states that her second SI injection is scheduled for 02/22/2023. The patient states that her pain has gradually returned over the last 1 to 2 weeks following her first injection. The patient notes continued pain throughout the low back that radiates down into the buttocks and groin. The patient also experiences radiating pain down into the left lower extremity, associated with numbness and tingling. The patient reports that the left leg shakes on an intermittent basis. The patient has trialed conservative measures in the form of physical therapy, massage therapy, at home heat/ice therapies, activity modification, previous lumbar epidural steroid injections, and her recent left SI joint injection. The patient denies experiencing any sustained relief from conservative treatment measures. The patient notes that she wears an LSO brace intermittently, but it only provides her with minimal relief. The patient is currently taking Flexeril, Duloxetine, Gabapentin, Tylenol, Celebrex, and using Lidocaine patches. The patient states that medication provides her with very mild, temporary relief. The patient states that her symptoms make it very difficult for her to complete many of her activities of daily living. The patient is having severe sleep disturbances due to her ongoing symptoms. The patient states that her symptoms have started to significantly affect her overall quality of life, so she would like to discuss surgical options today. Otherwise the patient denies any f/c/sob/cp, no bladder or bowel retention/incontinence, no perineal numbness/tingling, and ambulates independently. Ms. Zambrano presents to the office on 12/04/2022 for an evaluation of their low back pain. 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 They do report that it radiates into the bilateral lower extremities, associated with numbness and tingling. Patient reports increased numbness and tingling into the left anterior thigh is greater than the right lower extremity. Overall the patient has seen a progressive increase in symptoms since their onset, which has seen no change since last appointment. Ms. Zambrano symptoms are exacerbated with any increase of activity, due to this they notes that it is increasingly difficult for Ms. Zambrano to complete many of their daily tasks. patient has been wearing brace daily. Patient is having moderate sleep disturbances as well due to their ongoing pain and associated symptoms. Patient is currently receiving care and treatment from a Neurosurgeon, Dr. Mynor Soliman MD., Neurology, [facility], and [facility]. Patient reports that [facility] had told her that they have discharged her due to no longer being able to assist her. For their symptoms, the patient has been taking CBD, Flexeril, Gabapentin, Ketorolac, lidocaine, and Tramadol. Otherwise the patient denies any f/c/sob/cp, no bladder or bowel retention/incontinence, no perineal numbness/tingling, and ambulates independently. Ms. Zambrano presents to the office on 11/18/2022 for an evaluation of their low back pain. 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 They do report that it radiates into the bilateral lower extremities, associated with numbness and tingling. Patient reports increased numbness and tingling into the left anterior thigh is greater than the right lower extremity. Overall the patient has seen a progressive increase in symptoms since their onset, which has seen no change since last appointment. Ms. Zambrano symptoms are exacerbated with any increase of activity, due to this they notes that it is increasingly difficult for Ms. Zambrano to complete many of their daily tasks. patient has been wearing brace daily. Patient is having moderate sleep disturbances as well due to their ongoing pain and associated symptoms. Patient is currently receiving care and treatment from a Neurosurgeon, Dr. Mynor Soliman MD., Neurology, [facility], and [facility]. Patient reports that [facility] had told her that they have discharged her due to no longer being able to assist her. For their symptoms, the patient has been taking CBD, Flexeril, Gabapentin, Ketorolac, lidocaine, and Tramadol. Otherwise the patient denies any f/c/sob/cp, no bladder or bowel retention/incontinence, no perineal numbness/tingling, and ambulates independently. Ms. Zambrano presents to the office on 10/23/2022 for an evaluation of their low back pain. 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 They do report that it radiates into the bilateral lower extremities, associated with numbness and tingling. Patient reports increased numbness and tingling into the left anterior thigh is greater than the right lower extremity. Overall the patient has seen a progressive increase in symptoms since their onset. Ms. Zambrano symptoms are exacerbated with any increase of activity, due to this they notes that it is increasingly difficult for Ms. Zambrano to complete many of their daily tasks. Patient is having moderate sleep disturbances as well due to their ongoing pain and associated symptoms. Regarding treatments, the patient has previously trialed the above listed modalities. Patient denies trialing any other modalities at this time. Patient is currently receiving care and treatment from a Neurosurgeon, Dr. Mynor Soliman MD., Neurology, [facility], and [facility]. Patient reports that [facility] had told her that they have discharged her due to no longer being able to assist her. For their symptoms, the patient has been taking Meloxicam, Cyclobenzaprine, Gabapentin, and Tramadol. Patient reports that she does have an banking attorney to proceed with a workers compensation case. Otherwise the patient denies any f/c/sob/cp, no bladder or bowel retention/incontinence, no perineal numbness/tingling, and ambulates independently. Patient's sister Marisol is present in exam room. Marisol informs that patient does have a learning disability. Patient recently moved back to the area approx 6 months ago. The patients' past social, medical, family, surgical history, as well as review of systems, have been reviewed. Please refer to the Neurosurgery History and Physical form that has been scanned in to our electronic medical record system. 14 points review of systems completed and as stated in HPI, all other systems reviewed are negative. Social History: Reviewed, see appropriate section of the chart for details. P3 Family History: Reviewed, see appropriate section of the chart for details. P2 Past Medical History: Reviewed, see appropriate section of the chart for details. [id number] Medications: Rx: atorvastatin Ref: 0 Rx: busPIRone 10 mg tablet Ref: 0 Rx: CBD , Ref: 0 Rx: cyclobenzaprine Ref: 0 Rx: DULoxetine Ref: 0 Rx: gabapentin Ref: 0 Rx: gabapentin 600 mg tablet Ref: 0 Rx: ketorolac 10 mg tablet Ref: 0 Rx: lidocaine 5 % topical patch Ref: 0 Rx: lisinopriL 10 mg tablet Ref: 0 Rx: magnesium Ref: 0 Rx: mirtazapine 15 mg tablet Ref: 0 Rx: omeprazole 40 mg capsule,delayed release Ref: 0 Rx: prazosin 1 mg capsule Ref: 0 Rx: propranoloL 10 mg tablet Ref: 0 Rx: traMADol 50 mg tablet Ref: 0 Rx: Vitamin Ref: 0 P1 PHYSICAL EXAMINATION: General:Awake, alert, appropriate for age, in no acute distress. HEENT:No unusual neck masses around region of lateral neck triangle, thyroid, supraclavicular groove Heart:Regular rate and rhythm, normal S1, S2 and no murmur/gallop. Lungs:Clear to auscultation bilaterally with no use of accessory muscles. Extremities:Skin warm and dry without acute lesions, coloration, temperature, skin intact, no tenderness or erythema Integument: Hairy patches: ABSENT Dorsal skin dimples:ABSENT Cafe au lait spots:ABSENT Palpation: Please see Pain drawing on Intake sheet for further detail. Midline spinal tenderness: No E6 Cervical Tenderness: No E6 Paralumbar tenderness:Yes E6 Parathoracic tenderness: No E6 Buttocks tenderness: No E6 Sacroiliac Tenderness: Yes, left SIJ TESTING: +compression LT +Hip thrust LT +FABER4 Lt -Distraction +Thigh Thrust LT +Jevon LT POSTURAL and MUSCULO-SKELETAL EVALUATION: Coronal Balance: NEUTRAL Recumbent testing: Patient is able to lay flat on back Sagittal Balance: NEUTRAL Shoulder Profile: LEVEL Pelvic Girdle: LEVEL Neck ROM: UNRESTRICTED Lumbar ROM: RESTRICTED Shoulder ROM: Symmetrical Hip ROM: Symmetrical Knee ROM: Symmetrical Hands: Normal appearance, symmetrical Feet: Normal appearance, Symmetrical VASCULAR STATUS : LEFT RIGHT Wrist Pulses INTACT INTACT Pedal Pulses (Dors. pedis & post.tibialis) INTACT INTACT Color NORMAL NORMAL Edema Absent Absent NEUROLOGIC EXAMINATION: Mental Status:Awake and alert, fully oriented, with normal attention, concentration and memory, and fluent, appropriate speech. Cranial Nerves: I: Olfactory not tested. II: Visual acuity normal, no visual field deficit noted with confrontation. III,IV: Normal pupillary reflexes & intact extraocular movements without nystagmus. V,: Intact symmetrical facial sensation. VII: Intact symmetrical facial motor movement VIII: Hearing intact. IX,X: Intact gag, swallow, & normal voice. XI: Sternocleidomastoid, trapezius function intact. XII: Tongue midline with normal movements. L'hermitte's Sign: Negative / absent Spurling'Sign: Absent bilaterally. Cubital percussion test: Absent bilaterally. Llanos-Tinel sign - Carpal region: Absent bilaterally. Straight Leg Raising: Positive on left Crossed straight leg raise: negative O8 MOTOR EXAM (0-5/5, N/T Muscle appearance: Symmetrical, without signs of atrophy or dystrophy UPPER EXTREMITY RIGHT LEFT Shoulder Abduction 5/5 5/5 Biceps 5/5 5/5 Triceps 5/5 5/5 Wrist Extension 5/5 5/5 Hand Intrinsic 5/5 5/5 Manager Field 5/5 5/5 LOWER EXTREMITY RIGHT LEFT Hip Flexion 5/5 4/5 Knee Extension 5/5 4/5 Knee Flexion 5/5 4/5 Dorsiflexion 5/5 4-/5 Plantarflexion 5/5 3+/5 EHL 5/5 4-/5 FHL 5/5 4-/5 Toe heel walk / heel-toe walk intact while maintaining satisfactory balance? No Single leg stance: intact Trendelenburg sign negative bilaterally REFLEXES(0-4/2, NT)Upper ExtremityLower Extremity Right 2 2 Left 2 2 Pathological Reflexes RIGHT LEFT Llanos's Absent Absent Clonus Absent Absent Babinski Absent Absent Sensory system (0-4, N/T) Test type RU RONY RL LL Joint-Position 2 2 2 2 Vibration 2 2 2 2 Pain & LT sense 2 2 2 2 Dermatomal Deficit: None None None L4-5 Gait and Functional Evaluation: Ambulatory aids:Independent Romberg's test: Intact bilaterally Steady Gait RADIOGRAPHIC STUDIES: XRay Lumbar Multiview (AP, Lateral, Flexion, Extension) with AP pelvis; 5 views taken at [facility] on 10/23/22: - Reviewed with the patient today. Mild multilevel spondylitic changes with preserved alignment. Vertebral body heights are preserved. Disc heights are preserved. No acute osseous abnormalities. AP pelvis demonstrates congruent level pelvis no evidence of tunnel acetabular osteoarthrosis at this time on the right or left side. SI joints visible and sclerotic MRI scancompleted at [email or web address]: - Reviewed with the patient today. Impression: 1. L4-L5: Posterior annular tear is seen within the intervertebral disc. 23 millimeter broad-based disc herniation effaces the ventral surface of the thecal sac resulting in moderate bilateral neural foraminal encroachment and bilateral exiting L4 nerve impingement in conjunction with facet arthrosis. 2. L5-S1: 12 millimeter annular bulge effaces the ventral surface of the thecal sac without evidence of central canal or limiting foraminal stenosis. IMPRESSION: It was my pleasure to have seen and examined Karen. I reviewed the patient's clinical syndrome, physical findings, and imaging studies during the appointment today. It is my impression that the patient has a diagnosis of. 1. S/P left SI joint injections 2. SI joint osteoarthritis I outlined the natural course history without intervention and various interventional options. PLAN: Based on my findings I suggest the following course of action: - I discussed treatment options with the patient, including operative and non- operative options, and they have elected to proceed with the following surgical procedure: Left SI joint fusion, MIS The indications, risks, benefits, and alternatives to surgery were discussed with the patient and family at length. Specifically (but not limited to) the risks of infection, stiffness, recurrence of symptoms, need for revision surgery, local numbness, neurovascular injury, and blood clots were discussed. The patient's questions were answered. - Ambulate daily. - Take medications as directed. - Ice and rest for pain and swelling control. Spine Surgery Risk Review Ms. Zambrano is presenting for evaluation of low back, buttock, and left lower extremity pain. It was my pleasure to have seen and examined Ms. Zambrano. In our visit today we have had a chance to go over subjective complaints, physical examination findings and treatments including the natural course history without intervention and various interventional options. The patients imaging demonstrates: XRay Lumbar Multiview (AP, Lateral, Flexion, Extension) with AP pelvis; 5 views taken at [facility] on 10/23/22: - Reviewed with the patient today. Mild multilevel spondylitic changes with preserved alignment. Vertebral body heights are preserved. Disc heights are preserved. No acute osseous abnormalities. MRI scancompleted at [email or web address]/2022 [facility]: - Reviewed with the patient today. Impression: 1. L4-L5: Posterior annular tear is seen within the intervertebral disc. 23 millimeter broad-based disc herniation effaces the ventral surface of the thecal sac resulting in moderate bilateral neural foraminal encroachment and bilateral exiting L4 nerve impingement in conjunction with facet arthrosis. 2. L5-S1: 12 millimeter annular bulge effaces the ventral surface of the thecal sac without evidence of central canal or limiting foraminal stenosis. On physical exam, Ms. Zambrano demonstrates: The patient reports experiencing continued pain throughout the low back that radiates down into the buttocks and groin. The patient also experiences radiating pain down into the left lower extremity, associated with numbness and tingling. The patient reports that the left leg shakes on an intermittent basis. The patient states that her symptoms make it very difficult for her to complete many of her activities of daily living. The patient is having severe sleep disturbances due to her ongoing symptoms. The patient states that her symptoms have started to significantly affect her overall quality of life. I have explained to the patient that as their condition progresses it will cause further neurological deficits and eventual paralysis. Based on the patients imaging, physical exam, and the rapid progression and disabling nature of their symptoms, at this time I recommend surgery in the form of a: left SI joint fusion, MIS. I discussed the risk and benefits of this procedure at length with Ms. Zambrano. The patient agreed to considered pursuing the procedure abovementioned. Prior to surgery, she should follow up with her PCP (Cardio, ID, IM etc) for clearance. Questions were invited and answered, and the patient wishes to proceed as outlined below. Currently, I am recommendin.Left SI joint fusion, MIS 2.Follow up with PCP for surgical clearance 3.Review of surgical risks and benefits as well as an educational packet on the proposed surgical procedure. Risks: All surgical procedures come with inherent risks, including those related to positioning, anesthesia, intraoperative findings, and postoperative complications. It is important to understand that surgery does not come with any guarantee of a successful outcome as complications and adverse events are always possible. The patient was given a handout in office today discussing the surgical procedure and risks associated with the intervention, both of which were discussed with the patient. These risks include but are not limited to the following: * Experiencing same, different or even worse symptoms in back, neck, arms, or legs compared to before surgery. Requiring further surgery or other forms of treatment presently or at some time in the future at same or other levels of the intended spine surgery. On an extreme but fortunately relatively rare basis severe complication such as blindness, stroke, heart attack, temporary and/or permanent nerve injury, paralysis, coma, or may occur, sometimes without known explanation. Surgical complications may include but are not limited to risk of infection, fluid accumulation in the surgical dissection site, including a seroma or hematoma, that requires additional surgery, wound drainage, bleeding, new numbness or weakness, vision changes/loss, spinal fluid leakage, non-healing and/or infected incision, headaches, difficulty or inability to swallow, hoarseness, hemopneumothorax, pneumothorax, impotence, retrograde ejaculation, vaginal dryness; injury to nerves, spinal cord, blood vessels, lymphatics or other vital organs (i.e., bowel injury, injury to the great vessels); heterotopic bone formation; complications related to the hardware such as sc rews, rods, cages including misplaced hardware, device failure, instrumentation at the wrong spine level, hardware fracture/breakage, or hardware loosening; vertebral failure of the spinal column above or below the newly placed hardware; retained surgical instrumentations or devices and the need for further surgery. * Medical risks of the planned spine surgery include but are not limited to generalized Infections to the whole body or local areas outside of the surgical site (sepsis), heart attack, bleeding, anaphylaxis, meningitis, seizure, epilepsy, hearing loss, burn banda, laceration of the head or other areas of the body, bruising, hypersensitivity of the skin, bladder over distension; allergic reaction; shoulder injury related to positioning; fat, blood and air clots to other areas of the body like heart, lungs, brain; failure of internal organs such as lungs, kidneys, liver and excessive bleeding. If blood transfusions are necessary, note that transfusions may cause intolerance reactions such as anaphylaxis or other complex reactions. Despite best efforts, the results of spine surgery might not heal in terms of bone, soft tissues such as skin, fascia, ligaments, and joints. Additionally, in order to achieve best possible results, spine surgery may be carried out beyond the initially planned levels and involve decompression, fusion including insertion of hardware at levels other than the original intended area of surgical interest change some portions of the procedure in order to ensure the best possible outcomes. With spine surgery and spinal fusion, there are different off label uses of instrumentation (devices, implants and hardware) as well as biological substances (bone morphogenic proteins, demineralized bone matrix) as well as using extra bone from allograft sources (i.e. cadaver bone) or autograft (iliac crest bone, ribs, or the spine itself). The patient has been given information about these practices and their inherent risks and benefits. [facility] is an educational center that serves as a training facility for neurosurgical and orthopedic ELECTR[employer] ENGINEERING DRAFTING OFFICER and Nursing students. Physician assistants are medically trained surgical providers who function in the outpatient, inpatient, and operating room setting under the direct supervision of the attending surgeon. [facility] has multiple operating rooms with single and overlapping rooms running daily. They currently function under the required guidelines as produced by the [facility] [employer] Committee with regards to the overlapping rooms and will continue to comply with changes to this policy as they occur. The requirements include and are complied with as follows: (1) the critical portions of the overlapping rooms will not occur at the same time, (2) the attending mavis salazar will be physically present during the critical portions of the procedure and immediately available during the entire case, and (3) a back-up attending is designated should the primary attending not be immediately available. The patient has had a chance to review all the listed information, has been given print outs detailing this information, and has had all his/her questions answered to their satisfaction. It was my pleasure to have seen and examined Ms. Zambrano. In our visit today we have had a chance to go over my understanding of our patient's current condition, the natural course history without intervention and various interventional options. Questions were invited and answered, and the patient wishes to proceed as outlined above. I have seen and examined the patient for 25 minutes and we have spent more than 50% of the time in repeat and detailed counseling about the patient's condition, its natural course history with out and as much as can be predicted with surgery and re-review of various surgical treatment options. In conclusion, Ms. Zambrano requested we proceed with the above suggested surgery and are willing to accept risks and limitations of the suggested surgery as nature of the disease process and our best attempts at treatment for the condition. Thank you again for allowing us to be part of your patient's care. Please don't hesitate to contact me if you have any further questions. Follow-up: Post procedure Patient Education: (Informational booklet, instructions, etc) given at today's appointment: Yes .ED:Patient Education: Y Medications Reviewed: YES In our visit today Ms. Zambrano and I have had a chance to go over my understanding of the patient's current condition, the natural course history without intervention and various interventional options. Questions were invited and answered, and the patient wishes to proceed as outlined above. I will be sure to keep you updated afterMsSuzanne Zambrano returns here for further follow-up. Thank you again for your referral. Please do not hesitate to contact me if you have any further questions. Signed and authenticated by: Mikey Zaidi [facility] [address] [place] [id number] This message is confidential, intended only for the named recipient(s) and may contain information that is privileged or exempt from disclosure under applicable law. If you are not the intended recipient(s), you are notified that the dissemination, distribution or copying of this information is strictly prohibited. If you received this message in error, please notify the sender then delete this message. Patient verbalizes understanding of the information discussed. The above note was initiated by Miguel Duque, physician recording publisher assistant for Dr. Mikey Staley. This note has been reviewed by Dr. Staley, who has made his personal changes and impressions for this document. CC: Pauly Camara MD # SIGNED BY Mikey Staley (GOO)03/15/2023 06:19AM Past Medical History Past Medical History: Chest Pain / Angina, GERD/Reflux, Hypertension, Memory Impairment, Osteoarthritis (OA) Additional Past Medical History / Comment(s): chronic back pain,steroids January 2023 History of Any Multi-Drug Resistant Organisms: None Reported Past Surgical History: Hysterectomy, Orthopedic Surgery, Tubal Ligation Additional Past Surgical History / Comment(s): left shoulder surg. x2. benign tumor removed during hysterectomy. EGD. back injection Past Anesthesia/Blood Transfusion Reactions: No Reported Reaction Additional Past Anesthesia/Blood Transfusion Reaction / Comment(s): no hx blood transfusion Smoking Status: Current every day smoker - Past Family History Mother Family Medical History: Deep Vein Thrombosis (DVT) Medications and Allergies Home Medications Medication Instructions Recorded Confirmed Type DULoxetine HCL [Cymbalta] 60 mg PO BID 08/04/22 03/08/23 History Omeprazole 40 mg PO QAM 08/04/22 03/08/23 History lisinopriL [Zestril] 20 mg PO QAM 08/04/22 03/08/23 History busPIRone HCL [Buspar] 30 mg PO BID 09/21/22 03/08/23 History Atorvastatin [Lipitor] 20 mg PO DAILY 12/31/22 03/08/23 History Gabapentin 600 mg PO TID #30 tab 01/04/23 03/08/23 Rx Lidocaine 5% Patch [Lidoderm 5% 1 patch TOPICAL DAILY #5 patch 01/04/23 03/08/23 Rx Patch] Acetaminophen Tab [Tylenol Tab] 1,000 mg PO Q6HR PRN 03/08/23 03/08/23 History Cyclobenzaprine [Flexeril] 10 mg PO TID PRN 03/08/23 03/08/23 History Allergies Allergy/AdvReac Type Severity Reaction Status Date / Time hydrocodone [From [place]] Allergy Severe anaphylaxis,HIVES, Verified 03/08/23 11:49 COULD'NT BREATHE Penicillins Allergy Unknown Anaphylaxis, Verified 03/08/23 11:49 THROAT CLOSING, RASH, DYSPNEA adhesive tape Allergy rash/tape Verified 03/08/23 11:49 latex Allergy Rash/Hives Verified 03/08/23 11:49 Physical Examination Osteopathic Statement: *. No significant issues noted on an osteopathic structural exam other than those noted in the History and Physical/Consult.
[2023-03-15] MEDS ORDERED: droPERidol 5 MG/2 ML VIAL IVP PRN (06:38)
[2023-03-15] MEDS ORDERED: DEXAMETHASONE SOD PHOSPHATE 4 MG/ML 1 ML VIAL IV ONE (06:38)
[2023-03-15] MEDS ORDERED: LIDOCAINE 1% (10MG/ML) FOR IV START INTRADERMA PRN (06:38)
[2023-03-15] MEDS ORDERED: ONDANSETRON 4 MG/2 ML VIAL IVP ONE (06:38)
[2023-03-15 07:08] LABS: Glucose,Whole Blood 114 mg/dL (70-110)
[2023-03-15] MEDS ORDERED: GLYCOPYRROLATE 0.2 MG/ML 2 ML VIAL ONE (07:25)
[2023-03-15] MEDS ORDERED: fentaNYL (PF) 50 MCG/ML 2 ML AMP ONE (07:25)
[2023-03-15] MEDS ORDERED: PROPOFOL 10 MG/ML 20 ML VIAL IV ONE (07:25)
[2023-03-15] MEDS ORDERED: NEOSTIGMINE 1 MG/ML 10 ML VIAL ONE (07:25)
[2023-03-15] MEDS ORDERED: LIDOCAINE 2% INJ 20 MG/ML (2 ML VIAL) ONE (07:25)
[2023-03-15] MEDS ORDERED: MIDAZOLAM 2 MG/2 ML VIAL ONE (07:25)
[2023-03-15] MEDS ORDERED: SUCCINYLCHOLINE CHLORIDE 200 MG/10 ML VIAL IV ONE (07:25)
[2023-03-15] MEDS ORDERED: ROCURONIUM 10 MG/ML (5 ML VIAL) IV ONE (07:25)
[2023-03-15] MEDS: LACTATED RINGERS 1,000 ML IV SCH (07:26)
[2023-03-15] MEDS ORDERED: LIDOCAINE 2%-EPI 1:100,000 20 ML VIAL SQ ONE (07:30)
[2023-03-15] MEDS ORDERED: BUPIVACAINE (PF) 0.5% 30 ML VIAL SQ ONE (07:30)
[2023-03-15] MEDS ORDERED: HYDROmorphone 0.5 MG/0.5 ML SYRINGE IVP PRN (08:23)
[2023-03-15] MEDS ORDERED: HYDROmorphone 1 MG/ML 1 ML SYRINGE IVP PRN (08:23)
[2023-03-15] MEDS ORDERED: SENNOSIDES-DOCUSATE SODIUM 1 EACH TAB PO PRN (08:23)
[2023-03-15] MEDS ORDERED: CYCLOBENZAPRINE 10 MG TAB PO PRN (08:23)
[2023-03-15] MEDS ORDERED: MAGNESIUM HYDROXIDE 2,400 MG/30 ML CUP PO PRN (08:23)
[2023-03-15] MEDS ORDERED: LACTATED RINGERS 1,000 ML IV ONE (08:51)
[2023-03-15] MEDS: HYDROmorphone 0.5 MG/0.5 ML SYRINGE IVP PRN ×3 (09:16→09:50)
--- NOTE | 2023-03-15 12:36 | FL ---
Intraoperative/procedural fluoroscopic services were provided. Total fluoroscopy time is 2 minutes 38 seconds with a total of 2 submitted images to PACS. Please see the operative/procedural note for fur ther details. DAP: 0.4622 Gycm2
--- NOTE | 2023-03-15 13:16 | P.OP ---
Date of Procedure: 03/15/23 Preoperative Diagnosis: 1. LEFT DEGENERATIVE SACROILIITS 2. LOW BACK PAIN Postoperative Diagnosis: 1. LEFT DEGENERATIVE SACROILIITS 2. LOW BACK PAIN Procedure(s) Performed: 1. LEFT MINIMALLY INVASIVE SI JOINT FUSION Implants: -X3 LIFE SPINE SIJ SCREWS Anesthesia: GETA Surgeon: Mikey Staley Estimated Blood Loss (ml): 25 IV fluids (ml): 500 Urine output (ml): 0 Pathology: none sent Condition: stable Disposition: PACU Indications for Procedure: Ms. Zambrano is presenting for evaluation of low back, buttock, and left lower extremity pain. It was my pleasure to have seen and examined Ms. Zambrano. In our visit today we have had a chance to go over subjective complaints, physical examination findings and treatments including the natural course histo ry without intervention and various interventional options. The patients imaging demonstrates: XRay Lumbar Multiview (AP, Lateral, Flexion, Extension) with AP pelvis; 5 views taken at [facility] on 10/23/22: - Reviewed with the patient today. Mild multilevel spondylitic changes with preserved alignment. Vertebral body heights are preserved. Disc heights are preserved. No acute osseous abnormalities. MRI scancompleted at [id number]: - Reviewed with the patient today. Impression: 1. L4-L5: Posterior annular tear is seen within the intervertebral disc. 23 millimeter broad-based disc herniation effaces the ventral surface of the thecal sac resulting in moderate bilateral neural foraminal encroachment and bilateral exiting L4 nerve impingement in conjunction with facet arthrosis. 2. L5-S1: 12 millimeter annular bulge effaces the ventral surface of the thecal sac without evidence of central canal or limiting foraminal stenosis. On physical exam, Ms. Zambrano demonstrates: The patient reports experiencing continued pain throughout the low back that radiates down into the buttocks and groin. The patient also experiences radiating pain down into the left lower extremity, associated with numbness and tingling. The patient reports that the left leg shakes on an intermittent basis. The patient states that her symptoms make it very difficult for her to complete many of her activities of daily living. The patient is having severe sleep disturbances due to her ongoing symptoms. The patient states that her symptoms have started to significantly affect her overall quality of life. I have explained to the patient that as their condition progresses it will cause further neurological deficits and eventual paralysis. Based on the patients imaging, physical exam, and the rapid progression and disabling nature of their symptoms, at this time I recommend surgery in the form of a: left SI joint fusion, MIS. I discussed the risk and benefits of this procedure at length with Ms. Zambrano. The patient agreed to considered pursuing the procedure abovementioned. Prior to surgery, she should follow up with her PCP (Cardio, ID, IM etc) for clearance. Questions were invited and answered, and the patient wishes to proceed as outlined below. Currently, I am recommendin.Left SI joint fusion, MIS Description of Procedure: Left SI fusion MIS The patient was seen and examined in the preoperative area. All preoperative protocols were followed. Informed consent was obtained risks and benefits of the procedure were discussed at length. Risks including bleeding infection damage to the surrounding tissue and risk of reoperation were discussed with the patient. Risk of anesthesia up to and including was a discussed with the patient. These are outlined in the risk review. They were willing to accept these risks and all of the risks of surgery. The patient was given a weight-based dose of antibiotics in the form of 2 g Ancef. The patient was seen and evaluated by the anesthesia team who deemed them fit for surgery. The site was marked, the patient was willing to proceed with the procedure. The patient was transferred to the operative suite by the Department of anesthesia. They were then drifted off to sleep by the department anesthesia and GETA was performed. The patient tolerated this well. Once confirmation of lines and ventilation the patient was transferred to a [prone Mohinder table very carefully]. All bony prominences including wrists, elbows, axilla, chest, hips, and thighs, and feet were padded very well. Special attention was paid to the genitalia and these were padded accordingly. SCDs were placed on bilateral lower extremities and were connected. Arms were well padded and placed [on arm boards up and out in the 90/90 position]. Once in position, again we confirmed good ventilation capabilities and that lines were running appropriately. The patient's lumbopelvic spine was then exposed. 1010s were placed outlining the incision site. Standard alcohol was used to clean the incision site and allowed to dry. C-arm was used to biomark the patient and confirm level for incision which was marked with a skin marker. Operative briefing was performed with all teams and everyone in agreement to proceed. The patient was then prepped and draped in a normal sterile fashion. Timeout was then performed and all parties were in agreement with the procedure to be performed. Skin incision was then made over the previously marked area over the left upper buttock region of the patient following the alar lines and mid sacral line. Blunt dissection was then taken down to the ilium. The first pin was then selected and placed optimally within the SI region superiorly. This was then measured and drilled and a screw placed. Then using the parallel guide a second screw was placed in the anterior inferior position in a similar fashion this was then repeated for the inferior posterior screw. All screws had excellent purchase and were confirmed to be in good position on AP lateral inlet and outlet views. Neuro monitoring was then used to test the superior screw for L5 and S1 and these tested above 15 mA. No neuro monitoring changes during surgery no EMG. Final fluoroscopic images then confirmed good placement of hardware. We then thoroughly irrigated the wound. Deep fascia was closed with 0 Vicryl superficial closed with 2-0 Vicryl and skin closed with strata fix Monocryl. The wound was then cleaned and dressed with skin glue which was allowed to dry and then a Band-Aid. The patient was transferred back to their hospital bed atraumatically. Patient was then awakened and extubated by the department of anesthesia having tolerated the procedure very well with no complications. They were transferred to the postoperative care unit in stable condition.
[2023-03-15] MEDS: GABAPENTIN 300 MG CAP PO SCH ×2 (15:56→20:52)
--- NOTE | 2023-03-15 16:15 | P.CONS ---
History of Present Illness - Reason for Consult Consult date: 03/15/23 - History of Present Illness Patient is a 58-year-old female with history of hypertension, dyslipidemia, anxiety presenting for elective left minimally invasive SI joint fusion. [facility] physicians has been consulted for medical management. She denies any chest pain, shortness of breath,, pain, nausea, vomiting, urinary or bowel complaints. She has some soreness in her back at the moment. Currently patient's temperature is 97.6, pulse 86, respiratory rate 16, blood pressure 124/73, saturating at 99% on room air. Only lab available is glucose shows 114. Pertinent positives and negatives as discussed in HPI, a complete review of systems was performed and all other systems are negative. Patient seen and examined at bedside. Vital signs reviewed General: nontoxic, no distress, appears at stated age Derm: warm, dry, back dressing not observed Head: atraumatic, normocephalic, symmetric Eyes: EOMI, no lid lag, anicteric sclera, pupils equal round reactive to light ENT: Nose and ears atraumatic Neck: No thyromegaly, supple Mouth: no lip lesion, mucus membranes moist Cardiovascular: S1S2 reg, no murmur, no edema Lungs: clear to auscultation bilateral, no rhonchi, no rales, no wheeze, no a ccessory muscle use Abdominal: soft, nontender to palpation, no guarding, no appreciable organomegaly Ext: no gross muscle atrophy, muscle strength muscle strength 5 out of 5 in all 4 extremities, no contractures Neuro: CN II-XII grossly intact Psych: Alert, oriented, appropriate affect Assessment/Plan: Status post left minimally invasive SI joint fusion Hypertension Dyslipidemia Anxiety -On oral Tylenol scheduled, Flexeril as needed, gabapentin scheduled, Dilaudid IV as needed -Resume home medications -CBC and BMP pending Thank you for allowing us to participate in the care of this pleasant patient. Do not hesitate to contact us with questions. Someone can be reached from the [facility] hospitalist group all hours of the day at [phone] or via [place]. Past Medical History Past Medical History: Chest Pain / Angina, GERD/Reflux, Hypertension, Memory Imp airment, Osteoarthritis (OA) Additional Past Medical History / Comment(s): chronic back pain,steroids January 2023 History of Any Multi-Drug Resistant Organisms: None Reported Past Surgical History: Hysterectomy, Orthopedic Surgery, Tubal Ligation Additional Past Surgical History / Comment(s): left shoulder surg. x2. benign tumor removed during hysterectomy. EGD. back injection Past Anesthesia/Blood Transfusion Reactions: No Reported Reaction Additional Past Anesthesia/Blood Transfusion Reaction / Comm: no hx blood transfusion Smoking Status: Current every day smoker - Past Family History Mother Family Medical History: Deep Vein Thrombosis (DVT) Medications and Allergies Home Medications Medication Instructions Recorded Confirmed Type DULoxetine HCL [Cymbalta] 60 mg PO BID 08/04/22 03/08/23 History Omeprazole 40 mg PO QAM 08/04/22 03/08/23 History lisinopriL [Zestril] 20 mg PO QAM 08/04/22 03/08/23 History busPIRone HCL [Buspar] 30 mg PO BID 09/21/22 03/08/23 History Atorvastatin [Lipitor] 20 mg PO DAILY 12/31/22 03/08/23 History Gabapentin 600 mg PO TID #30 tab 01/04/23 03/08/23 Rx Lidocaine 5% Patch [Lidoderm 5% 1 patch TOPICAL DAILY #5 patch 01/04/23 03/08/23 Rx Patch] Acetaminophen Tab [Tylenol Tab] 1,000 mg PO Q6HR PRN 03/08/23 03/08/23 History Cyclobenzaprine [Flexeril] 10 mg PO TID PRN 03/08/23 03/08/23 History Allergies Allergy/AdvReac Type Severity Reaction Status Date / Time hydrocodone [From [place]] Allergy Severe anaphylaxis,HIVES, Verified 03/15/23 06:45 COULD'NT BREATHE Penicillins Allergy Unknown Anaphylaxis, Verified 03/15/23 06:45 THROAT CLOSING, RASH, DYSPNEA adhesive tape Allergy rash/tape Verified 03/15/23 06:45 latex Allergy Rash/Hives Verified 03/15/23 06:45 Physical Exam Vitals: Vital Signs Temp Pulse Resp BP Pulse Ox 03/15/23 15:00 97.6 F 86 16 124/73 99 03/15/23 14:20 66 18 116/60 98 03/15/23 13:20 66 18 116/60 98 03/15/23 12:50 66 20 111/57 99 03/15/23 12:20 76 18 120/77 98 03/15/23 11:50 73 18 105/60 98 03/15/23 11:20 99 16 113/55 100 03/15/23 10:48 74 14 101/57 97 03/15/23 10:17 77 14 111/59 93 L 03/15/23 10:02 90 14 119/65 97 03/15/23 09:47 89 14 123/67 94 L 03/15/23 09:32 81 14 125/65 97 03/15/23 09:17 84 14 140/62 100 03/15/23 09:02 97 F L 80 16 151/71 100 03/15/23 07:15 81 16 122/79 98 03/15/23 07:08 98.2 F 85 16 117/71 98 Intake and Output 03/15/23 03/15/23 03/15/23 06:59 14:59 22:59 Intake Total 1200 Output Total 10 Balance 1190 Intake: IV 1200 Output: Estimated Blood Loss 10 Other: Weight 84.1 kg Results Labs: Abnormal Lab Results - Last 24 Hours (Table) 03/15/23 Range/Units 07:06 POC Glucose (mg/dL) 114 H (70-110) mg/dL
[2023-03-15] MEDS: ACETAMINOPHEN TAB 325 MG TAB PO SCH ×2 (17:36→23:24)
[2023-03-15] MEDS: busPIRone HCl 10 MG TAB PO SCH (20:51)
[2023-03-15] MEDS: DULoxetine HCL 60 MG CAPSULE.DR PO SCH (20:51)
[2023-03-15] MEDS ORDERED: MIRTAZAPINE 15 MG TAB PO SCH (23:00)
[2023-03-16 04:57] VITALS: RESP 18
[2023-03-16] MEDS: ACETAMINOPHEN TAB 325 MG TAB PO SCH ×2 (05:44→13:11)
[2023-03-16] MEDS: LACTATED RINGERS 1,000 ML IV SCH (05:46)
[2023-03-16] MEDS ORDERED: lisinopriL 20 MG TAB PO SCH (09:00)
[2023-03-16] MEDS ORDERED: ATORVASTATIN 20 MG TAB PO SCH (09:00)
[2023-03-16] MEDS ORDERED: PANTOPRAZOLE 40 MG TABLET PO SCH (09:00)
--- NOTE | 2023-03-16 09:22 | P.PN ---
Subjective Progress Note Date: 03/16/23 Principal diagnosis: 1. S/P left SI joint injections 2. SI joint osteoarthritis Patient seen and examined this morning. Patient states she has been up and ambulatory to the restroom without difficulty. Her pain is managed on current regimen. Surgical dressing to the left lower extremity is clean dry and intact. Patient states she is looking forward to going home today. Encouraged patient to continue with ambulation as tolerated. Patient to follow up in office in 2 weeks. No acute concerns. Objective - Vital Signs Vital signs: Vital Signs Temp 98.0 F 03/16/23 07:15 Pulse 79 03/16/23 07:15 Resp 18 03/16/23 07:15 BP 128/79 03/16/23 07:15 Pulse Ox 98 03/16/23 07:15 FiO2 Intake & Output 03/15/23 03/16/23 03/16/23 18:59 06:59 18:59 Intake Total 1200 Output Total 10 Balance 1190 Intake: IV 1200 Output: Estimated Blood Loss 10 Other: Voiding Method Toilet # Voids 2 - Exam Inspection: Left lower extremities surgical incision is clean dry and intact, mild bruising noted. Sensation: Sensation is equal, symmetric, bilaterally intact throughout the upper and lower extremities Palpation: Nontender to palpation throughout bilateral upper and lower extremities and throughout spine exam Range of motion: Patient does have full range of motion bilateral upper and lower extremities on exam Motor: 5/5 in all major motor groups in the bilateral upper and 4/5 lower extremities Special tests: Negative Homans bilaterally. Negative Darren bilaterally. Negative clonus bilaterally. Neurovascular: Radial pulse intact, 2+ bilaterally. Cap refill under 3 seconds in digits upper extremities. Assessment and Plan Assessment: Postop day 1: Left sacroiliac joint fusion 1. S/P left SI joint injections 2. SI joint osteoarthritis Plan: -Appreciate supervisor home energy consultant and team management. -Activity: Ambulate QID, OOB all meals, up and about, limit lifting bending twisting to less than 5 lbs. Use walker or cane if needed for stability. -Daily PT/OT, increase ambulation strength and balance. -Pain control: Adequate at this time -Meds: reviewed -GI ppx: senna, Miralax -DVT PPX: OK to restart Heparin tonight -Hygiene: Shower today. Maintain dressing clean and dry. -Encourage IS 10x/hr -Dispo: Anticipate discharge home today *I reviewed and discussed this case with my attending Dr. Staley, whom has reviewed this chart and films and is in agreement with assessment and plan of care as outlined above. I have personally seen and examined the patient, performed the documentation and the assessment and plan as written. Number of minutes spent on the visit: 15m .
[2023-03-16] MEDS: GABAPENTIN 300 MG CAP PO SCH (09:40)
[2023-03-16] MEDS: DULoxetine HCL 60 MG CAPSULE.DR PO SCH (09:40)
[2023-03-16] MEDS: busPIRone HCl 10 MG TAB PO SCH (09:41)
[2023-03-16 11:57] LABS: Basophils # (A) 0.02 X 10*3/uL (0.00-0.10); Basophils % (A) 0.2 %; Eosinophils # (A) 0.04 X 10*3/uL (0.04-0.35); Eosinophils % (A) 0.3 %; HCT 33.7 % (37.2-46.3); HGB 11.2 d/dL (12.0-15.0); Lymphocytes % (A) 22.7 %; MCH 31.7 pg (27.0-32.0); MCHC 33.2 d/dL (32.0-37.0); MCV 95.5 FL (80.0-97.0); Mean Platelet Volume 11.5 FL (9.5-12.2); Monocytes # (A) 0.95 X 10*3/uL (0.20-1.00); Monocytes % (A) 7.4 %; NRBC Per 100 WBC 0 X 10*3/uL (0.00-0.01); Neutrophils # (A) 8.84 X 10*3/uL (1.80-7.70); Neutrophils % (A) 69.1 %; Platelet Count 245 X 10*3/uL (140-440); RBC 3.53 X 10*6/uL (4.10-5.20); RDW 13.7 % (11.5-14.5); WBC 12.79 X 10*3/uL (4.50-10.00)
[2023-03-16 12:09] LABS: BUN/Creat Ratio 10.78 Ratio (12.00-20.00); Blood Urea Nitrogen 9.7 mg/dL (9.0-27.0); Calcium 8.9 mg/dL (8.7-10.3); Carbon Dioxide 25.4 mmol/L (21.6-31.8); Chloride 105 mmol/L (96-109); Glucose 101 mg/dL (70-110); Potassium 4.1 mmol/L (3.5-5.5); Sodium 141 mmol/L (135-145)
--- NOTE | 2023-03-16 12:59 | P.PN ---
Subjective Progress Note Date: 03/16/23 Patient is a 58-year-old female with history of hypertension, dyslipidemia, anxiety presenting for elective left minimally invasive SI joint fusion. [facility] has been consulted for medical management. 03/16 Patient was seen and examined. No acute events overnight. She reports well controlled pain. Voiding freely. Plans for discharge today. Vital sign: T98F, pulse 79, respiratory rate 18, blood pressure 128/79, saturating at 98% on room air. O CBC shows leukocytosis 12.79, Hg 11.2. BMP shows BUN/Cr ratio 10.78. Vital signs reviewed General: nontoxic, no distress, appears at stated age Derm: warm, dry, back dressing not observed Head: atraumatic, normocephalic, symmetric Eyes: EOMI, no lid lag, anicteric sclera ENT: Nose and ears atraumatic Neck: No thyromegaly, supple Cardiovascular: good distal perfusion in all 4 extremities Lungs: breathing comfortably, no accessory muscle use Ext: no gross muscle atrophy, muscle strength muscle strength 5 out of 5 in all 4 extremities, no contractures Psych: Alert, oriented, appropriate affect Assessment/Plan: Leukocytosis: No signs of active infection. Reactive. Acute blood loss anemia: Hg 11.2. Status post left minimally invasive SI joint fusion Hypertension: Resume Lisinopril. Dyslipidemia: Resume Lipitor. Anxiety: Resume Cymbalta and Buspar. Thank you for allowing us to participate in the care of this pleasant patient. Objective - Vital Signs Vital signs: Vital Signs Temp 98.0 F 03/16/23 07:15 Pulse 79 03/16/23 07:15 Resp 18 03/16/23 09:41 BP 128/79 03/16/23 07:15 Pulse Ox 98 03/16/23 07:15 FiO2 Intake & Output 03/15/23 03/16/23 03/16/23 18:59 06:59 18:59 Intake Total 1200 Output Total 10 Balance 1190 Intake: IV 1200 Output: Estimated Blood Loss 10 Other: Voiding Method Toilet Toilet # Voids 2 1 - Labs CBC & Chem 7: 03/16/23 06:33 03/16/23 06:33 Labs: Abnormal Lab Results - Last 24 Hours (Table) 03/16/23 03/16/23 Range/Units 06:33 06:33 WBC 12.79 H (4.50-10.00) X 10*3/uL RBC 3.53 L (4.10-5.20) X 10*6/uL Hgb 11.2 L (12.0-15.0) d/dL Hct 33.7 L (37.2-46.3) % Neutrophils # 8.84 H (1.80-7.70) X 10*3/uL BUN/Creatinine Ratio 10.78 L (12.00-20.00) Ratio
[2023-03-16 14:17] VITALS: BP 122/78; PULSE 77; TEMP 97.8
== END 2023-03-16 15:10 | disposition home or self-care (01) ==
LOC: OR 06:05 → 6NMEDSUR 14:25 → OR 03-16 15:10
PROVIDERS: ATTEND Orthopaedic Surgery
DX: M46.1 Sacroiliitis, not elsewhere classified (principal); I10 Essential (primary) hypertension; K21.9 Gastro-esophageal reflux disease without esophagitis; G89.29 Other chronic pain; F17.200 Nicotine dependence, unspecified, uncomplicated; Z98.1 Arthrodesis status; Z90.710 Acquired absence of both cervix and uterus; Z98.51 Tubal ligation status; Z88.5 Allergy status to narcotic agent; Z79.899 Other long term (current) drug therapy
CPT/HCPCS: 97162; 86900; 86901; 80048; 85025; 86850; 72100; 27279; C1713; J2250; J0330; J1100; J2710; J0690; J2405; J3010; J2704; J1170; J2001; J0665

== ENCOUNTER 2023-03-20 23:02 | Emergency (ER) | payer OTHER ==
[2023-03-21 00:50] LABS: Cocaine Screen,Urine Not Detected (NotDetected); Phencyclidine Screen,Urine Not Detected (NotDetected); Urn Cannabinoid Scrn Detected (NotDetected)
[2023-03-21 00:51] LABS: Amphetamine Screen,Urine Not Detected (NotDetected); Barbiturate Screen,Urine Not Detected (NotDetected); Benzodiazepines Screen,Urine Detected (NotDetected); Methadone Screen, Urine Not Detected (NotDetected); Opiate Screen,Urine Detected (NotDetected); Oxycodone Screen, Urine Not Detected (NotDetected); Tricyclic Antidepressant,Urine Detected (NotDetected)
[2023-03-21] MEDS ORDERED: Acetaminophen-Codeine 300-30mg TAB PO STA (01:34)
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
[2023-03-21 07:31] VITALS: BP 112/74; PULSE 74; RESP 18; TEMP 98.2
== END 2023-03-21 12:20 | disposition home or self-care (01) ==
LOC: EC 23:02
DX: R45.851 Suicidal ideations (principal); F32.A Depression, unspecified; F41.9 Anxiety disorder, unspecified; K21.9 Gastro-esophageal reflux disease without esophagitis; I10 Essential (primary) hypertension; F17.200 Nicotine dependence, unspecified, uncomplicated; Z88.0 Allergy status to penicillin; Z91.040 Latex allergy status; Z88.5 Allergy status to narcotic agent; Z79.899 Other long term (current) drug therapy
CPT/HCPCS: 36415; 80306; 99285; G0480; 80320

== ENCOUNTER 2023-03-22 11:23 | Inpatient (IN) | payer MEDICAID, OTHER ==
[2023-03-22] MEDS ORDERED: MAGNESIUM HYDROXIDE 2,400 MG/30 ML CUP PO PRN (16:53)
[2023-03-22] MEDS ORDERED: LORazepam 0.5 MG TAB PO PRN (16:53)
[2023-03-22] MEDS ORDERED: MAG HYDROX/AL HYDROX/SIMETH 30 ML CUP PO PRN (16:53)
[2023-03-22] MEDS ORDERED: LIDOCAINE 5% PATCH TOPICAL PRN (17:02)
[2023-03-22] MEDS: DULoxetine HCL 60 MG CAPSULE.DR PO SCH (21:23)
[2023-03-22] MEDS: busPIRone HCl 10 MG TAB PO SCH (21:23)
[2023-03-22] MEDS: GABAPENTIN 300 MG CAP PO SCH (21:24)
[2023-03-23] MEDS: busPIRone HCl 10 MG TAB PO SCH ×2 (08:34→20:18)
[2023-03-23] MEDS: GABAPENTIN 300 MG CAP PO SCH ×3 (08:34→20:18)
[2023-03-23] MEDS: lisinopriL 20 MG TAB PO SCH (08:34)
[2023-03-23] MEDS: ATORVASTATIN 20 MG TAB PO SCH (08:34)
[2023-03-23] MEDS: DULoxetine HCL 60 MG CAPSULE.DR PO SCH (08:34)
[2023-03-23] MEDS: MELOXICAM 7.5 MG TAB PO SCH (08:34)
[2023-03-23] MEDS: PANTOPRAZOLE 40 MG TABLET PO SCH (08:35)
[2023-03-23] MEDS: NICOTINE 14MG/24HR PATCH TRANSDERM SCH (08:35)
[2023-03-23] MEDS: ACETAMINOPHEN TAB 500 MG TAB PO PRN (10:11)
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
[2023-03-23] MEDS: SERTRALINE 50 MG TAB PO SCH (11:48)
[2023-03-23] MEDS: CYCLOBENZAPRINE 10 MG TAB PO PRN ×2 (11:48→21:29)
[2023-03-23] MEDS ORDERED: OLANZapine 5 MG TAB PO PRN (11:52)
[2023-03-23] MEDS ORDERED: OLANZapine 10 MG VIAL IM PRN (11:52)
[2023-03-23] MEDS ORDERED: QUEtiapine 50 MG TAB PO SCH (21:00)
[2023-03-24] MEDS: CYCLOBENZAPRINE 10 MG TAB PO PRN ×3 (06:29→21:54)
[2023-03-24] MEDS: ACETAMINOPHEN TAB 500 MG TAB PO PRN ×3 (06:29→21:54)
[2023-03-24] MEDS: lisinopriL 20 MG TAB PO SCH (08:49)
[2023-03-24] MEDS: ATORVASTATIN 20 MG TAB PO SCH (08:49)
[2023-03-24] MEDS: GABAPENTIN 300 MG CAP PO SCH ×3 (08:49→20:40)
[2023-03-24] MEDS: NICOTINE 14MG/24HR PATCH TRANSDERM SCH (08:49)
[2023-03-24] MEDS: busPIRone HCl 10 MG TAB PO SCH ×2 (08:49→20:40)
[2023-03-24] MEDS: SERTRALINE 50 MG TAB PO SCH (08:49)
[2023-03-24] MEDS: PANTOPRAZOLE 40 MG TABLET PO SCH (08:49)
[2023-03-24] MEDS: MELOXICAM 7.5 MG TAB PO SCH (08:49)
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
--- NOTE | 2023-03-24 17:43 | P.HPMEDMHU ---
History of Present Illness H&P Date: 03/24/23 Patient is a 58-year-old female with depression/anxiety, recent SI joint surgery, hypertension, dyslipidemia presenting to prior major depressive disorder, currently in behavioral health unit. [facility] physicians has been consulted for medical management. She denies any chest pain, shortness of breath, abdominal pain, nausea, vomiting, urinary or bowel complaints. Pertinent positives and negatives as discussed in HPI, a complete review of systems was performed and all other systems are negative. Patient seen and examined at bedside. Vital signs reviewed General: nontoxic, no distress, appears at stated age Derm: warm, dry, incision site appears clean, dry, intact Head: atraumatic, normocephalic, symmetric Eyes: EOMI, no lid lag, anicteric sclera, pupils equal round reactive to light ENT: Nose and ears atraumatic Neck: No thyromegaly, supple Mouth: no lip lesion, mucus membranes moist Cardiovascular: S1S2 reg, no murmur, no edema Lungs: clear to auscultation bilateral, no rhonchi, no rales, no wheeze, no accessory muscle use Abdominal: soft, nontender to palpation, no guarding, no appreciable organomegaly Ext: no gross muscle atrophy, muscle strength muscle strength 5 out of 5 in all 4 extremities, no contractures Neuro: CN II-XII grossly intact Psych: Alert, oriented, appropriate affect Assessment/Plan: Recent SI joint surgery Hypertension Dyslipidemia Depression/anxiety -Home medications reviewed and reconciled -Patient needs donald removed 3 weeks postop, which will be 04/06 -If patient is still in mental health unit on 04/06, we will try to remove donald -She needs follow-up with orthospine surgery at discharge -Rest of the care per psychiatry Thank you for allowing us to participate in the care of this pleasant patient. Do not hesitate to contact us with questions. Someone can be reached from the [facility] hospitalist group all hours of the day at [phone] or via [employer]. Past Medical History Past Medical History: Chest Pain / Angina, GERD/Reflux, Hypertension, Memory Impairment Additional Past Medical History / Comment(s): HAVING TROUBLE SWALLOWING, MEDS GET STUCK IN THROAT History of Any Multi-Drug Resistant Organisms: None Reported Past Surgical History: Hysterectomy, Orthopedic Surgery, Tubal Ligation Additional Past Surgical History / Comment(s): left shoulder surg. x2. benign tumor removed during hysterectomy. Left Hip surgery 03/15/23 Past Anesthesia/Blood Transfusion Reactions: No Reported Reaction Past Psychological History: Anxiety, Depression, PTSD Smoking Status: Current every day smoker Past Alcohol Use History: None Reported Additional Past Alcohol Use History / Comment(s): SMOKING < 1 PPD SINCE AGE 17 Past Drug Use History: None Reported - Past Family History Mother Family Medical History: Deep Vein Thrombosis (DVT) Medications and Allergies Home Medications Medication Instructions Recorded Confirmed Type DULoxetine HCL [Cymbalta] 60 mg PO BID 08/04/22 03/22/23 History Omeprazole 40 mg PO DAILY 08/04/22 03/22/23 History lisinopriL [Zestril] 20 mg PO DAILY 08/04/22 03/22/23 History busPIRone HCL [Buspar] 30 mg PO BID 09/21/22 03/22/23 History Atorvastatin [Lipitor] 20 mg PO DAILY 12/31/22 03/22/23 History Acetaminophen Tab [Tylenol] 1,000 mg PO Q6HR PRN 03/08/23 03/22/23 History Cyclobenzaprine [Flexeril] 10 mg PO TID PRN #30 tab 03/16/23 03/22/23 Rx Gabapentin 600 mg PO TID #90 tab 03/16/23 03/22/23 Rx Acetaminophen-Codeine 300-30mg 1 tab PO Q6H PRN 03/22/23 03/22/23 History [Tylenol w/codeine #3] Celecoxib [CeleBREX] 200 mg PO DAILY 03/22/23 03/22/23 History Lidocaine 5% Patch [Lidoderm 5% 1 patch TOPICAL DAILY PRN 03/22/23 03/22/23 History Patch] Allergies Allergy/AdvReac Type Severity Reaction Status Date / Time hydrocodone [From [place]] Allergy Severe anaphylaxis,HIVES, Verified 03/15/23 06:45 COULD'NT BREATHE Penicillins Allergy Unknown Anaphylaxis, Verified 03/15/23 06:45 THROAT CLOSING, RASH, DYSPNEA adhesive tape Allergy rash/tape Verified 03/15/23 06:45 latex Allergy Rash/Hives Verified 03/15/23 06:45 Physical Exam Vitals: Vital Signs Temp Pulse Resp BP 03/24/23 06:00 96.6 F L 101 H 14 108/57 Cranial Nerve Examination - Cranial Nerves Cranial Nerve II- Optic: Intact Cranial Nerve III- Oculomotor: Intact Cranial Nerve IV- Trochlear: Intact Cranial Nerve V- Trigeminal: Intact Cranial Nerve - Abducens: Intact Cranial Nerve VII- Facial: Intact Cranial Nerve VIII- Auditory: Intact Cranial Nerve IX- Glossopharyngeal: Intact Cranial Nerve X- Vagus: Intact Cranial Nerve XI- Accessory: Intact Cranial Nerve XII- Hypoglossal: Intact Thrombosis Risk Factor Assmnt - Choose All That Apply Each Factor Represents 1 point: Age 41-60 years, History of prior major surgery (<1month), Obesity (BMI >25) Other Risk Factors: Yes Each Risk Factor Represents 2 Points: Major surgery Other congenital or acquired thrombophilia - If yes, enter type in comment: No Each Risk Factor Represents 5 Points: Major surgery lasting over 3 hours Thrombosis Risk Factor Assessment Total Risk Factor Score: 10 Thrombosis Risk Factor Assessment Level: High Risk
[2023-03-24] MEDS: hydrOXYzine pamoate 25 MG CAP PO PRN (20:45)
[2023-03-24] MEDS ORDERED: QUEtiapine 25 MG TAB PO SCH (21:00)
[2023-03-25] MEDS: NICOTINE 14MG/24HR PATCH TRANSDERM SCH (08:50)
[2023-03-25] MEDS: busPIRone HCl 10 MG TAB PO SCH ×2 (08:51→20:44)
[2023-03-25] MEDS: ATORVASTATIN 20 MG TAB PO SCH (08:51)
[2023-03-25] MEDS: MELOXICAM 7.5 MG TAB PO SCH (08:51)
[2023-03-25] MEDS: PANTOPRAZOLE 40 MG TABLET PO SCH (08:51)
[2023-03-25] MEDS: SERTRALINE 100 MG TAB PO SCH (08:52)
[2023-03-25] MEDS: lisinopriL 20 MG TAB PO SCH (08:52)
[2023-03-25] MEDS: GABAPENTIN 300 MG CAP PO SCH ×3 (08:52→20:44)
[2023-03-25] MEDS: ACETAMINOPHEN TAB 500 MG TAB PO PRN ×3 (08:55→20:45)
[2023-03-25] MEDS: CYCLOBENZAPRINE 10 MG TAB PO PRN ×3 (08:55→20:45)
--- NOTE | 2023-03-25 11:41 | P.PN ---
Progress Note - Text Progress Note Date: 03/25/23 (\) Interval history: Patient was seen today laying in her bed and was agreeable to be seen today in the office and speak with director underwriter sales. patient claims that she is still in pain however states that she is feeling more positive today. she claims that the zoloft has been helping with her anxiety and mood so far. states that she slept throught the night well. she is less tearful. she claims that she has a good lead for a room in a house for rent. states that her appetite is improving. She was very thankful for the treatment has been taking her medications at this time. She claims that she is trying to go to some groups and remain positive however finding it difficult mainly due to her pain. Denying any suicidal or homicidal ideations. Denying any auditory or visual hallucinations. Mental status examination: General Appearance: Patient appears to be using a walker, crouched over, stated age is alert, directable, and attempts to cooperate. Patient appears to have improving hygiene and grooming. Behavior: Patient is seated without any agitated behavior. more cooperative. Speech: Patient's speech is fluent and nonpressured. Mood/Affect: Patient reports their mood is improving mildly, affect is congruent and less tearful Suicidality/Homicidality: Patient denies having any homicidal ideation intent or plan. Denies any suicidal ideations intent or plan Perceptions: Patient denies any visual hallucinations and denies any auditory hallucinations Though content/process: There is no evidence of any delusional thought content and thought process is linear and goal-directed. Focus on her symptoms and stressors less today Memory and concentration: AOX3, grossly intact for the purposes of this session Judgment and insight: improving mildly IMPRESSIONS: Major depressive disorder, without psychotic features PTSD cannabis use disorder nicotine dependence homelessness PLAN: -Patient is admitted under voluntary status to [facility]HU for stabilization of psychiatric symptoms and safety. Patient has signed adult voluntary form and medication consent and is placed in patient's chart. -Medications : Zoloft 100 mg daily for mood/anxiety, increase Seroquel 100 mg daily at bedtime for mood adjunct/insomnia. BuSpar 30 mg twice a day for anxiety. Vistaril when necessary for anxiety. -zyprexa PRN for agitation/aggression -NRT - nicotine patch -SW on board for discharge planning. Encourage patient to participate in groups to work on coping skills. Possibly discharge wednesday morning, patient is currently homeless. she is looking at renting a room.
[2023-03-25] MEDS: QUEtiapine 100 MG TAB PO SCH (20:44)
[2023-03-26] MEDS: busPIRone HCl 10 MG TAB PO SCH ×2 (09:02→20:05)
[2023-03-26] MEDS: CYCLOBENZAPRINE 10 MG TAB PO PRN ×2 (09:02→17:22)
[2023-03-26] MEDS: GABAPENTIN 300 MG CAP PO SCH ×3 (09:02→20:06)
[2023-03-26] MEDS: SERTRALINE 100 MG TAB PO SCH (09:02)
[2023-03-26] MEDS: PANTOPRAZOLE 40 MG TABLET PO SCH (09:03)
[2023-03-26] MEDS: lisinopriL 20 MG TAB PO SCH (09:03)
[2023-03-26] MEDS: MELOXICAM 7.5 MG TAB PO SCH (09:03)
[2023-03-26] MEDS: ATORVASTATIN 20 MG TAB PO SCH (09:03)
[2023-03-26] MEDS: ACETAMINOPHEN TAB 500 MG TAB PO PRN ×2 (09:04→17:22)
[2023-03-26] MEDS: NICOTINE 14MG/24HR PATCH TRANSDERM SCH (09:05)
--- NOTE | 2023-03-26 11:38 | P.PN ---
Progress Note - Text Progress Note Date: 03/26/23 Interval history: Patient was seen today walking in the hallway before going to groups. Patient appeared to have a brighter affect today and was more talkative. She states that she is doing better in terms of her mood and anxiety. She claims that she talked to the social services assistant who states that she might be able to get into living in house. Client Server Programmer spoke with patient about not meeting criteria to go to [facility] and patient began being upset. She was somewhat tearful. She continues t o focus on her homelessness. We spoke about other options and she will try to make more phone calls to her niece and sister and also plans to rent out a room versus go to the halfway. She states that her mood and anxiety of been gradually improving. Claims that she was able to sleep better last night with the Seroquel. She was very thankful for the treatment has been taking her medications at this time. She claims that she is trying to go to some groups and remain positive. Denying any suicidal or homicidal ideations. Denying any auditory or visual hallucinations. Mental status examination: General Appearance: Patient appears to be using a walker, crouched over, stated age is alert, directable, and attempts to cooperate. Patient appears to have improving hygiene and grooming. Behavior: Patient is seated without any agitated behavior. more cooperative. Speech: Patient's speech is fluent and nonpressured. Mood/Affect: Patient reports their mood is depressed, improving mildly, affect is congruent and less tearful today Suicidality/Homicidality: Patient denies having any homicidal ideation intent or plan. Denies any suicidal ideations intent or plan Perceptions: Patient denies any visual hallucinations and denies any auditory hallucinations Though content/process: There is no evidence of any delusional thought content and thought process is linear and goal-directed. Focus on her homelessness Memory and concentration: AOX3, grossly intact for the purposes of this session Judgment and insight: improving mildly IMPRESSIONS: Major depressive disorder, without psychotic features PTSD cannabis use disorder nicotine dependence homelessness PLAN: -Patient is admitted under voluntary status to [facility]HU for stabilization of psychiatric symptoms and safety. Patient has signed adult voluntary form and medication consent and is placed in patient's chart. -Medications : Zoloft 100 mg daily for mood/anxiety, Seroquel 100 mg daily at bedtime for mood adjunct/insomnia. BuSpar 30 mg twice a day for anxiety. Vistaril when necessary for anxiety. -zyprexa PRN for agitation/aggression -NRT - nicotine patch -SW on board for discharge planning. Encourage patient to participate in groups to work on coping skills. likely discharge wednesday, patient is currently homeless. she is looking at renting a room vs staying with family vs halfway.
[2023-03-26] MEDS: hydrOXYzine pamoate 25 MG CAP PO PRN (20:05)
[2023-03-26] MEDS: QUEtiapine 100 MG TAB PO SCH (20:06)
[2023-03-27] MEDS: busPIRone HCl 10 MG TAB PO SCH ×2 (08:36→20:54)
[2023-03-27] MEDS: NICOTINE 14MG/24HR PATCH TRANSDERM SCH (08:36)
[2023-03-27] MEDS: ATORVASTATIN 20 MG TAB PO SCH (08:37)
[2023-03-27] MEDS: SERTRALINE 100 MG TAB PO SCH (08:37)
[2023-03-27] MEDS: lisinopriL 20 MG TAB PO SCH (08:37)
[2023-03-27] MEDS: MELOXICAM 7.5 MG TAB PO SCH (08:37)
[2023-03-27] MEDS: PANTOPRAZOLE 40 MG TABLET PO SCH (08:37)
[2023-03-27] MEDS: GABAPENTIN 300 MG CAP PO SCH ×3 (08:40→20:54)
[2023-03-27] MEDS: CYCLOBENZAPRINE 10 MG TAB PO PRN ×2 (08:44→20:57)
--- NOTE | 2023-03-27 14:21 | P.PN ---
Subjective Progress Note Date: 03/27/23 Principal diagnosis: IMPRESSIONS: Major depressive disorder, without psychotic features PTSD cannabis use disorder nicotine dependence homelessness Patient Name: Karen Zambrano Date of : 1965 Patient Status: Inpatient Attending Provider: Arie Mcmanus Date: 03/27/23 Progress note by Pasha Benoit M.D. Interval history: Patient was seen today walking in the hallway and using a walker . Patient appeared to have a brighter affect today and was more talkative. She states that she is doing better in terms of her mood and anxiety. Patient is hopeful that she will be able to stay with her sister for a short peer of time She continues to focus on her homelessness. She states that her mood and anxiety of been gradually improving. Patient planning to elaborate detail over the circumstances that led her to the hospitalization including her car breaking down needing her hip surgery and her roommate who had boyfriend problems and formal and she had to call the police She also reports that she had been living in [place] prior to this and is on SSDI She reports that she's been using marijuana quite heavily Mental status examination: General Appearance: Patient appears to be using a walker, crouched over, stated age is alert, directable, and attempts to cooperate. Patient appears to have improving hygiene and grooming. Behavior: Patient is seated without any agitated behavior. more cooperative. Speech: Patient's speech is fluent and somewhat circumstantial and tangential Mood/Affect: Patient reports their mood is depressed, improving mildly, affect is congruent and less tearful today Suicidality/Homicidality: Patient denies having any homicidal ideation intent or plan. Denies any suicidal ideations intent or plan Perceptions: Patient denies any visual hallucinations and denies any auditory hallucinations Though content/process: There is no evidence of any delusional thought content and thought process is linear and goal-directed. Focus on her homelessness Memory and concentration: AOX3, grossly intact for the purposes of this session Judgment and insight: improving mildly IMPRESSIONS: Major depressive disorder, without psychotic features PTSD cannabis use disorder nicotine dependence homelessness PLAN: -Patient is admitted under voluntary status to MHU for stabilization of psychiatric symptoms and safety. Patient has signed adult voluntary form and medication consent and is placed in patient's chart. -Medications : Zoloft 100 mg daily for mood/anxiety, Seroquel 100 mg daily at bedtime for mood adjunct/insomnia. BuSpar 30 mg twice a day for anxiety. Vistaril when necessary for anxiety. -zyprexa PRN for agitation/aggression -NRT - nicotine patch -SW on board for discharge planning. Encourage patient to participate in groups to work on coping skills. likely discharge wednesday, patient is currently homeless. she is looking at renting a room vs staying with family vs intermediate. Pasha Benoit M.D. Objective - Vital Signs Vital signs: Vital Signs Temp 97.3 F L 03/26/23 07:01 Pulse 91 03/27/23 08:40 Resp 16 03/27/23 08:40 BP 114/72 03/27/23 08:40 Pulse Ox 98 03/23/23 06:43 FiO2
[2023-03-27] MEDS: ACETAMINOPHEN TAB 500 MG TAB PO PRN (16:34)
[2023-03-27] MEDS: QUEtiapine 100 MG TAB PO SCH (20:55)
[2023-03-27] MEDS: hydrOXYzine pamoate 25 MG CAP PO PRN (20:56)
[2023-03-28] MEDS: ACETAMINOPHEN TAB 500 MG TAB PO PRN ×2 (08:41→20:42)
[2023-03-28] MEDS: GABAPENTIN 300 MG CAP PO SCH ×3 (08:41→20:42)
[2023-03-28] MEDS: NICOTINE 14MG/24HR PATCH TRANSDERM SCH (08:41)
[2023-03-28] MEDS: ATORVASTATIN 20 MG TAB PO SCH (08:41)
[2023-03-28] MEDS: MELOXICAM 7.5 MG TAB PO SCH (08:42)
[2023-03-28] MEDS: PANTOPRAZOLE 40 MG TABLET PO SCH (08:42)
[2023-03-28] MEDS: SERTRALINE 100 MG TAB PO SCH (08:42)
[2023-03-28] MEDS: busPIRone HCl 10 MG TAB PO SCH ×2 (08:42→20:42)
[2023-03-28] MEDS: lisinopriL 20 MG TAB PO SCH (08:42)
[2023-03-28] MEDS: CYCLOBENZAPRINE 10 MG TAB PO PRN ×2 (08:42→20:42)
--- NOTE | 2023-03-28 10:23 | P.PN ---
Subjective Progress Note Date: 03/28/23 Principal diagnosis: IMPRESSIONS: Major depressive disorder, without psychotic features PTSD cannabis use disorder nicotine dependence homelessness Patient Name: Karen Zambrano Date of : 1965 Patient Status: Inpatient Attending Provider: Arie Mcmanus Date: 03/28/23 Progress note by Pasha Benoit M.D. Interval history: The patient was seen in the patient lounge where she was putting together a puzzle with the patient Patient's affect was bright Patient states that she feels positive She says that she is going to be staying with her sister and her niece She says that things are falling back in place She denies any suicidal or homicidal ideations or plans Mental status examination: General Appearance: Patient appears to be using a walker, crouched over, stated age is alert, directable, and attempts to cooperate. Patient appears to have improving hygiene and grooming. Behavior: Patient is seated without any agitated behavior. more cooperative. Speech: Patient's speech is fluent and somewhat circumstantial and tangential Mood/Affect: Patient reports their mood is improving , affect is congruent and no tearfulness today Suicidality/Homicidality: Patient denies having any homicidal ideation intent or plan. Denies any suicidal ideations intent or plan Perceptions: Patient denies any visual hallucinations and denies any auditory hallucinations Though content/process: There is no evidence of any delusional thought content and thought process is linear and goal-directed. Focus on her homelessness Memory and concentration: AOX3, grossly intact for the purposes of this session Judgment and insight: improving mildly IMPRESSIONS: Major depressive disorder, without psychotic features PTSD cannabis use disorder nicotine dependence homelessness PLAN: -Patient is admitted under voluntary status to MHU for stabilization of psychiatric symptoms and safety. Patient has signed adult voluntary form and medication consent and is placed in patient's chart. -Medications : Zoloft 100 mg daily for mood/anxiety, Seroquel 100 mg daily at bedtime for mood adjunct/insomnia. BuSpar 30 mg twice a day for anxiety. Vistaril when necessary for anxiety. -zyprexa PRN for agitation/aggression -NRT - nicotine patch -SW on board for discharge planning. Encourage patient to participate in groups to work on coping skills. likely discharge wednesday morning, patient is currently homeless. she is looking at renting a room vs staying with family vs [facility]. Pasha Benoit M.D. Objective - Vital Signs Vital signs: Vital Signs Temp 97.3 F L 03/28/23 06:48 Pulse 74 03/28/23 06:48 Resp 14 03/28/23 06:48 BP 126/73 03/28/23 06:48 Pulse Ox 98 03/23/23 06:43 FiO2
[2023-03-28] MEDS: QUEtiapine 100 MG TAB PO SCH (20:42)
[2023-03-28] MEDS: hydrOXYzine pamoate 25 MG CAP PO PRN (22:58)
[2023-03-29 07:19] VITALS: BP 139/85; PULSE 86; RESP 16; TEMP 97
[2023-03-29] MEDS: MELOXICAM 7.5 MG TAB PO SCH (08:35)
[2023-03-29] MEDS: GABAPENTIN 300 MG CAP PO SCH (08:35)
[2023-03-29] MEDS: NICOTINE 14MG/24HR PATCH TRANSDERM SCH ×3 (08:35→10:11)
[2023-03-29] MEDS: busPIRone HCl 10 MG TAB PO SCH (08:35)
[2023-03-29] MEDS: PANTOPRAZOLE 40 MG TABLET PO SCH (08:36)
[2023-03-29] MEDS: lisinopriL 20 MG TAB PO SCH (08:36)
[2023-03-29] MEDS: ATORVASTATIN 20 MG TAB PO SCH (08:36)
[2023-03-29] MEDS: SERTRALINE 100 MG TAB PO SCH (08:36)
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
[2023-03-29] MEDS: hydrOXYzine pamoate 25 MG CAP PO PRN (10:51)
== END 2023-03-29 15:10 | disposition home or self-care (01) | DRG 754 ==
LOC: 3MHU 15:37
PROVIDERS: ADMIT Psychiatry & Neurology Psychiatry; ATTEND Psychiatry & Neurology Psychiatry
DX: F32.9 Major depressive disorder, single episode, unspecified (principal); F17.210 Nicotine dependence, cigarettes, uncomplicated; F43.10 Post-traumatic stress disorder, unspecified; G47.00 Insomnia, unspecified; F12.10 Cannabis abuse, uncomplicated; Z71.51 Drug abuse counseling and surveillance of drug abuser; Z71.89 Other specified counseling; R45.851 Suicidal ideations; I10 Essential (primary) hypertension; E78.5 Hyperlipidemia, unspecified; Z79.899 Other long term (current) drug therapy; Z81.8 Family history of other mental and behavioral disorders; Z59.00 Homelessness unspecified; Z28.21 Immunization not carried out because of patient refusal; Z88.5 Allergy status to narcotic agent; Z88.0 Allergy status to penicillin; Z91.040 Latex allergy status; Z98.1 Arthrodesis status
CPT/HCPCS: 83036; 84443

== ENCOUNTER → 2023-05-14 | Outpatient (CLI) | payer OTHER ==
--- NOTE | 2023-05-14 19:22 | CTL ---
EXAMINATION TYPE: CT Low Dose Lung DATE OF EXAM ORDERED: 05/14/2023 HISTORY: 58-year-old female Z12.2 ENCNTR SCREEN FOR MALIGNANT NEOPLAS, F17.210. Lung cancer screening . Current smoker with 20 pack-year history. CT DLP: [address] CTDI: 2.49 mGy Automated exposure control for dose reduction was used. SCREENING VISIT: Baseline COMPARISON: None TECHNIQUE: Low dose computed tomography scan was performed through the chest with coronal and sagitta l reconstructions. CT DIAGNOSTIC QUALITY: Satisfactory FINDINGS: The heart is normal size without pericardial effusion. Aorta normal caliber with bovine configuration to the aortic arch. No thoracic lymphadenopathy by CT size criteria. * 5 mm subpleural pulmonary nodule lateral left base. * 5 mm subpleural pulmonary nodule posterior right upper lobe, axial image 49. * 4 mm anterior right midlung pulmonary nodule, axial image 115. Strandy dependent atelectasis. There is scattered subpleural reticular change throughout the lungs in cluding the upper lungs. Mild diffuse bronchial wall thickening. No consolidation or pleural effusi on. Visualized upper abdomen shows no gross abnormality. Bones: Normal variant sternal foramen. IMPRESSION: 1. LungRADS Category 2 (benign appearance or behavior, <1% chance of malignancy). A few pulmonary nod ules measuring up to 5 mm on baseline screening. 2. Scattered nonspecific interstitial fibrosis. Consider pulmonary medicine evaluation if no establis hed diagnosis. CT LUNG RAD AND CT CHEST RECOMMENDATION: Lung-Rad 2 Benign Appearance or Behavior: Continue annual sc reening with LDCT in 12 months. S Modifier (other clinically significant findings): None
== END | disposition home or self-care (01) ==
LOC: RADCTMAIN 13:47
PROVIDERS: ATTEND Internal Medicine
DX: Z12.2 Encounter for screening for malignant neoplasm of respiratory organs (principal); F17.210 Nicotine dependence, cigarettes, uncomplicated; R91.8 Other nonspecific abnormal finding of lung field
CPT/HCPCS: 71271